=== PATIENT | female | born 1955 | race Caucasian/White ===

== ENCOUNTER 2025-05-13 10:09 | Day surgery (SDC) | payer MEDICARE, MEDICAID, SELFPAY ==
--- OUTSIDE RECORDS SUMMARY | 2025-05-07 14:30 | XMS_ITS | Encounter Summary ---
Author Organization [facility] [place] [address] Care Team Providers Care Rug Renovator Name Role Phone Minnie Baker MD Primary Care Provider [phone] Reason for Visit * Reason Comments Follow-up Encounter Details Date Type Department Care Team (Latest Contact Info) Description 05/07/2025 2:30 PM EST Office Visit [facility] [address] [place] [phone] Selvin Patel MD [address] [place] [address] [address] [place] [phone] Coronary artery calcification (Primary Dx); Primary hypertension; Other hyperlipidemia Social History Tobacco Use Types Packs/Day Years Used Date Smoking Tobacco: Former Cigarettes 0.5 30.1 0 06/27/1984 - 07/23/2014 Smokeless Tobacco: Never Alcohol Use Standard Drinks/Week Comments No 0 (1 standard drink = 0.6 oz pur e alcohol) Housing Instability Answer Date Recorde d Are you worried that in the next 2 months you may not have stable housing? No 05/31/2024 Food Access & Nutrition Answer Date Rec orded Do you have access to a vari ety of food including fruits and vegetables? Yes 05/31/2024 Access to Healthcare Answer Date Record ed Within the last 3 months, ho w many times did you visit the emergency department for your medical care? 0 05/31/2024 Health Literacy Answer Date Recorded How often do you need to hav e someone help you when you read instructions, pamphlets, or other written material from your doctor or pharmacy? Never 05/31/2024 Caregiver: How often do you need to have someone help you when you read instructions, pamphlets, or other written material from your doctor or pharmacy? Not on file 05/31/2024 Financial Risk Answer Date Recorded How hard is it for you to pa y for the very basics like food, housing, medical care, and air conditioning / heating? Somewhat hard 05/31/2024 Transportation Answer Date Recorded Has the lack of transportati on kept you from meetings, work, or from getting things needed for daily living? No Has the lack of transportati on kept you from medical appointments or from getting medications? No 05/31/2024 Social Isolation Answer Date Recorded How often do you feel lonely or isolated from th ose around you? Never 05/31/2024 Food Risk Answer Date Recorded Within the past 12 months we worried whether our food would run out before we got money to buy more. Sometimes true 024 Within the past 12 months th e food we bought just didn't last and we didn't have money to get more. Sometimes true 05/31/2024 Dependent Care Answer Date Recorded Do you need help finding or paying for care for your loved ones. For example, director child abuse therapy or elderly care for an older adult? No 05/31/2024 Education Answer Date Recorded Do you think completing more education or training, like finishing a GED, going to college, or learning a trade, would be helpful for you? N/A 05/31/2024 Employment and Income Answer Date Recor ded During the last four weeks, have you been actively looking for work? No 05/31/2024 Living Situation Answer Date Recorded What is your living situation? Unrecognized valu e 05/31/2024 Interpersonal Safety Answer Date Record ed Physical Abuse Unrecognized value 04/02/2025 Verbal Abuse Unrecognized value 04/02/2025 Comments No Sex and Gender Information Value Date Recorded Sex Assigned at Female 09/20/2024 3:58 PM EDT Legal Sex Female 2:23 AM EST Gender Identity Not on file Sexual Orientation Not on file documented as of this encounter Last Filed Vital Signs Vital Sign Reading Time Taken Comments Blood Pressure 154/70 05/07/2025 2:57 PM EST Pulse 61 05/07/2025 2:57 PM EST Temperature - - Respiratory Rate - - Oxygen Saturation 95% 05/07/2025 2:57 PM EST Inhaled Oxygen Concentration - - Weight 58.4 kg (128 lb 11.2 oz) 05/07/2025 2:57 PM EST Height 157.5 cm (5' 2 ) 05/07/2025 2:57 PM EST Body Mass Index 23.54 05/07/2025 2:57 PM EST documented in this encounter Ordered Prescriptions Prescription Sig Dispense Quantity Refills Last Filled Start Date End Date amLODIPine (NORVASC) 5 mg tabletIndications: Primary hypertension Take 1 tablet (5 mg total) by mouth 1 (one) time each day. 90 each 3 05/07/2025 05/07/2026 documented in this encounter Progress Notes * Selvin Patel MD - 05/07/2025 2:30 PM ESTAssociated Problem(s): Coronary artery calcification Patient with a previous history of coronary calcification. No symptoms at this time we will continue with risk factor modification. Patient strongly encouraged to contact us if she develops exertional symptoms Orders: ECG 12 lead * Selvin Patel MD - 05/07/2025 2:30 PM ESTAssociated Problem(s): Hypertension Patient's blood pressure is significant elevated. I am going to double the strength of her amlodipine Orders: ECG 12 lead amLODIPine (NORVASC) 5 mg tablet; Take 1 tablet (5 mg total) by mouth 1 (one) time each day. * Selvin Patel MD - 05/07/2025 2:30 PM ESTAssociated Problem(s): Hyperlipidemia Strongly encouraged to get a lipid profile done so that we can ensure that the Repatha is being effective and be able to continue it through medical management. Orders: ECG 12 lead * Selvin Patel MD - 05/07/2025 2:30 PM EST Images from the original note were not included. [facility] CONSULT REQUESTED BY: Dr Baker PCP: Minnie Baker MD HPI: Hetal Craft is [id number] history of hypertension, possible whitecoat induced. History of hyperlipidemia, family history coronary disease. With a 50-year-old brother suffering acute coronary syndrome and sudden cardiac . Patient is COPD CAT scan of the chest showed evidence of coronarycalcification. History of tobacco abuse alcoholic cirrhosis with varices. Given her cardiac risk factor she underwent testing with a stress echocardiogram to evaluate for any evidence of ischemia. She completed the stress echo with no chest pain but she did develop some shortness of breath. There were no abnormal ST segment changes suggestive of ischemia. She had a normal resting echocardiogram with preserved EF and no regional wall motion abnormalities with exercise. She had normal augmented response the test was submaximal since she only reached 70% of age-predicted heart rate. Patient was previously on statin therapy but was unable to tolerate it Patient has sleep study done that showed mild sleep apnea that is obstructive. Patient is on Repatha for hyperlipidemia due to statin intolerance. She has had no chest pain or pressure no shortness of breath no PND orthopnea has some heartburn. She has not had her lipids checked which we have asked her to. History of Present Illness ACTIVE MEDICATIONS: Medications Taking[1] PAST MEDICAL HISTORY: Problem List[2] ALLERGIES: Allergies[3] FAMILY HISTORY: Family History[4] SOCIAL HISTORY: Social History Tobacco Use Smoking status: Former Current packs/day: 0.00 Average packs/day: 0.5 packs/day for 30.1 years (15.0 ttl pk-yrs) Types: Cigarettes Start date: 06/27/1984 Quit date: 07/23/2014 Years since quittin.7 Smokeless tobacco: Never Substance Use Topics Alcohol use: No REVIEW OF SYSTEMS: ROS PHYSICAL EXAM: Vitals: 05/07/25 1457 BP: (!) 154/70 BP Location: Right arm Patient Position: Sitting Pulse: 61 SpO2: 95% Weight: 58.4 kg (128 lb 11.2 oz) Height: 1.575 m (62 ) Physical Exam EKG: No results found for this or any previous visit (from the past 4464 hours). ASSESSMENT/PLAN: Assessment & Plan Coronary artery calcification Patient with a previous history of coronary calcification. No symptoms at this time we will continue with risk factor modification. Patient strongly encouraged to contact us if she develops exertional symptoms Orders: ECG 12 lead Primary hypertension Patient's blood pressure is significant elevated. I am going to double the strength of her amlodipine Orders: ECG 12 lead amLODIPine (NORVASC) 5 mg tablet; Take 1 tablet (5 mg total) by mouth 1 (one) time each day. Other hyperlipidemia Strongly encouraged to get a lipid profile done so that we can ensure that the Repatha is being effective and be able to continue it through medical management. Orders: ECG 12 lead Assessment/Plan The above note was prepared with the help of voice recognition software. Please excuse any grammatical or spelling errors that may have occurred The [facility] team will continue to co-manage this patient following the plan of care as established by my initial visit and as per AHA guidelines for ongoing management and surveillance of Hyperlipidemia This will include medication titration, initiation of appropriate medications and further titration,and diagnostic studies to manage this disease process. [1] Outpatient Medications Marked as Taking for the 05/07/25 encounter (Office Visit) with Selvin Patel MD Medication Sig Dispense Refill albuterol HFA (PROAIR HFA ; PROVENTIL HFA ; VENTOLIN HFA) 90 mcg/actuation inhaler Inhale 2 Puffs into the lungs every 6 hours as needed for Wheezing or Shortness of Breath for up to 90 days. This isabel Rescue Medication; not exceed 12 inhalations/24 hrs. alirocumab (Praluent Pen) 75 mg/mL pen injector INJECT 1 ML INTO THE SKIN EVERY 14 DAYS 6 mL 0 fluticasone propionate (FLONASE) 50 mcg/actuation nasal spray Administer 2 sprays into each nostril1 (one) time each day. Shake gently. Before first use, prime pump. After use, clean tip and replacecap. 48 mL 2 gabapentin (NEURONTIN) 300 mg capsule Take 1 capsule (300 mg total) by mouth at bedtime. 90 capsule1 lactulose (Enulose) solution Take 15 mL (10 g total) by mouth 2 (two) times a day. 1500 mL 1 lamoTRIgine (LaMICtal) 100 mg tablet Take 1 tablet (100 mg total) by mouth 2 (two) times a day. traZODone (DESYREL) 50 mg tablet Take 1-2 tablets (50-100 mg total) by mouth at bedtime as needed for sleep. 180 tablet 0 [DISCONTINUED] amLODIPine (NORVASC) 2.5 mg tablet Take 1 tablet (2.5 mg total) by mouth at bedtime.90 tablet 1 [2] Patient Active Problem List Diagnosis Cataract Cervicalgia Cirrhosis, alcoholic ([facility] V24, [facility] V28) CKD (chronic kidney disease) stage 3, GFR 30-59 ml/min ([facility] V24, [facility] V28) COPD (chronic obstructive pulmonary disease) ([facility] V24, [facility] V28) Coronary artery calcification Diverticulosis Dysphagia Esophageal reflux Esophageal varices ([facility] V24, [facility] V28) Hyperlipidemia Hypertension Low back pain Obstructive sleep apnea Osteoporosis Prediabetes Ulcerative colitis without complications ([facility] V24, [facility] V28) History of lung cancer History of dysplastic nevus Primary insomnia Migraine Seizure disorder ([facility] V24, [facility] V28) [3] Allergies Allergen Reactions Omeprazole Diarrhea Diarrhea and oral ulceration. Pantoprazole Other fatigue Penicillins Hives Sucralfate Itching [4] Family History Problem Relation Name Age of Onset Esophageal cancer Mother 2009 Alcohol abuse Father Heart attack Brother age 51 Colon cancer Maternal Grandmother Colon cancer Paternal Grandmother Breast cancer Neg Hx Ovarian cancer Neg Hx documented in this encounter Plan of Treatment Upcoming Encounters Date Type Department Care Team (Late st Contact Info) Description 05/15/2025 3:00 PM EST Appointment Radiology Department - [place] [address] [place] [phone] 05/15/2025 3:30 PM EST Appointment Radiology Department - [address] [phone] 06/06/2025 5:00 PM EST Appointment [facility] CT Scan [address] [place] [phone] 10/09/2025 9:45 AM EDT Office Visit Adult Medicine [address] [phone] Minnie Baker MD [address] [place] [address] 10/16/2025 11:25 AM EDT Office Visit Pulmonology [facility] [address] [facility] [address] [place] [phone] Dariana Cramer, CHRIS [address] [place] [phone] documented as of this encounter Goals Goal Patient Goal Type Associated Problems Recent Progress Patient-Stated? Author Autogenerat ed Goal Care Plan Autogenerated Problem No Yina Griffith documented as of this encounter Visit Diagnoses Diagnosis Coronary artery calcification- Primary Primary hypertension Unspecified essential hypertension Other hyperlipidemia documented in this encounter Discontinued Medications Medication Sig Discontinue Reason Start Date End Da te amLODIPine (NORVASC) 2.5 mg tablet Take 1 tablet (2.5 mg total) by mouth at bedtime. 03/14/2025 05/07/2025 documented as of this encounter Additional Health Concerns Active Problems Noted Date Diagnosed Date Autogenerated Problem 04/01/2025 Assessment Noted Time PHQ-9 Depression Total Score: 0 03/07/20 25 10:53 AM EDT A fall risk assessment has been complete d for the patient 05/31/2024 10:49 AM EST documented as of this encounter Care Teams Rug Renovator Relationship Specialty Start Date End Date Minnie Baker MD [address] [place] [phone] PCP - General Internal Medicine 12/21/19 documented as of this encounter
--- OUTSIDE RECORDS SUMMARY | 2025-05-09 09:05 | XMS_ITS | Encounter Summary ---
Author Organization [facility] [place] [address] Care Team Providers Care Production Wood Craftsman Name Role Phone Minnie Baker MD Primary Care Provider [phone] Encounter Details Date Type Department Care Team (Late st Contact Info) Description 05/09/2025 9:05 AM EST Lab Draw Station - [address] [phone] Hyperlipidemia, unspecified hyperlipidemia type Social History Tobacco Use Types Packs/Day Years [...] Record ed Within the last 3 months, astrid kirby many times did you visit the emergency [...] do you feel lonely or isolated from ose around you? Never 05/31/2024 Food Risk [...] care for your loved ones. For example, children's ministry director or elderly care for an older adult? [...] on file documented as of this encounter Plan of Treatment Upcoming Encounters Date Type Department Care Team ([facility] Contact Info) Description 05/15/2025 3:00 PM EST Appointment Radiology Department [address] [place] [phone] 05/15/2025 3:30 PM EST Appointment Radiology Department - [address] [phone] 06/06/2025 5:00 PM EST Appointment [facility] CT Scan [address] [place] [phone] 10/09/2025 9:45 AM EDT Office Visit Adult [facility] [place] [facility] [place] [address] [place] [address] Minnie Baker MD [address] [place], [place] 10/16/2025 11:25 AM EDT Office Visit Pulmonology [facility] [address] [facility] [address] [place] [phone] Dariana Cramer, CHRIS [address] [place] [phone] documented as of this encounter Goals Goal Patient Goal Type Associated Problems Recent Progress Patient-Stated? Author Autogenerat ed Goal Care Plan Autogenerated Problem No Yina Griffith documented as of this encounter Procedures Procedure Name Priority Date/Time Associated Diagnosis Comments LIPID PANEL WITH REFLEX TO DIRECT LDL Routine 05/09/2025 9:07 AM EST Hyperlipidemia, unspecified hyperlipidemia type documented in this encounter Results * Lipid panel with reflex to direct LDL (05/09/2025 9:07 AM EST) Cholesterol 168 0 - 200 mg/dL LAB CHEMISTRY METHOD 05/09/2025 4:[address] [facility] Triglycerides 78 0 - 150 mg/dL LAB CHEMISTRY METHOD 05/09/2025 4:[address] [facility] HDL 69 >=40 mg/dL LAB CHEMISTRY METHOD 05/09/2025 4:[address] [facility] LDL Calculated 83 0 - 100 mg/dL LAB CHEMISTRY METHOD 05/09/2025 4:[address] [facility] Comment:Estimated LDL Calcul ated using equation: Total cholesterol - HDL cholesterol - (Triglycerides/5) VLDL Cholesterol Layo 15.6 mg/dL LAB CHEMISTRY METHOD 05/09/2025 4:[address] [facility] Non HDL Chol. (LDL+VLDL) 99 <145 mg/dL LAB CHEMISTRY METHOD 05/09/2025 4:04 PM [facility] Chol/HDL Ratio 2.4 0.0 - 4.4 LAB CHEMISTRY METHOD 05/09/2025 4:04 PM [facility] Blood Venous blood specimen / Unknown Venipuncture / Unknown 05/09/2025 9:07 AM EST 05/09/2025 9:08 AM EST Flora Avina JANITORIAL SUPERVISOR LAB BLOOD ORDERABLES Final R esult [facility] [address] [place] [address], documented in this encounter Visit Diagnoses Diagnosis Hyperlipidemia, unspecified hyperlipidemia type documented in this encounter Additional Health Concerns Active Problems Noted Date Diagnosed Date Autogenerated Problem 04/01/2025 Assessment Noted Time PHQ-9 Depression Total Score: 0 03/07/20 25 10:53 AM EDT A fall risk assessment has been complete d for the patient 05/31/2024 10:49 AM EST documented as of this encounter Care Teams Production Wood Craftsman Relationship Specialty Start Date End Date Minnie Baker MD [address] [place] [phone] PCP - General Internal Medicine 12/21/19 documented as of this encounter
--- NOTE | ~2025-05-13 | FL_ITS ---
EXAMINATION: FLUOROSCOPY GUIDANCE FOR NEEDLE PLACEMENT CLINICAL INFORMATION: T7 THOARACIC TFESI, RIGHT COMPARISON: None available. TECHNIQUE: Fluoroscopy guidance was provided to referring physician during T7 epidural injection. FINDINGS: AP and lateral images were obtained during T7 and to injection. There is contrast opacifying the epidural space. FLUOROSCOPY TIME: 16 seconds DOSE AREA PRODUCT: 63.29 uGy-m2 (microgray-meter squared) FL/FL guidance in OR IMPRESSION: Fluoroscopy guidance was provided to referring physician during T7 epidural injection. Electronically signed by: Iban Ross MD 05/13/2025 03:34 PM EST
--- NOTE | 2025-05-13 10:26 | MHC.SHP ---
Pre-Procedural Eval Section A - 24 Hr Update-Section A only Date of Service: 05/13/25 The patient is an INPATIENT: No Section B - Complete if H&P > 30 days Chief Complaint: Radiculopathy, thoracic region Details of Present Illness: Chronic thoracic pain right thoracic radiculitis Relevant Family History (Specify if Yes): No Relevant Social History: None Present Medications: see Short Stay Collaborative assessment Medical History: No relevant PMH History of Previous Operations: No relevant previous surgery Allergies: Allergies Allergy/AdvReac Type Severity Reaction Status Date / Time Unable to Assess Allergy Verified 05/13/25 10:24 Review of Systems Sugical H&P ROS: Negative: Constitution, Cardiovascular, Respiratory, Neurological, Psychiatric, Hem-Onc, Allergic/Immunologic, Gastrointestinal, Genitourinary, Musculoskeletal, Integumentary, Endocrine and Eyes/Ears/Nose/Throat Exam Surgical H&P Exam: Normal: HEENT, Normal: Heart, Normal: Lungs, Normal: Extremities, Normal: Abdomen, Normal: Skin and Normal: Neurological Plan Diagnosis/Plan: Unchanged I have reviewed the history and physical and performed a pertinent physical examination on my patient. No changes have occurred unless specified. Time Spent With Patient Time: Total time managing care of this patient today ____ minutes.
[2025-05-13 10:27] VITALS: BMI 23.6
--- NOTE | 2025-05-13 10:27 | W.PM.OPN ---
Operative Note Operative Note Date of Service: 05/13/25 Narrative: Procedure performed: Right T7 transforaminal epidural steroid injection Preop diagnosis: Thoracic radiculitis Postop diagnosis: The same Anesthesia: Mac Patient was placed in the prone position on the procedure table. Right T7 pedicle was visualized utilizing fluoroscopy. 3.5 in 22 gauge spinal needle was introduced percutaneously and advanced underneath the pedicle toward the spinal canal. Once the level of spinal canal was achieved as demonstrated on lateral fluoroscopic image, needle placement was verified utilizing 3 cc of Omnipaque contrast solution. Total volume of 6 cc containing 3 cc of 1% lidocaine, 20 mg of dexamethasone and normal saline solution were injected after negative aspiration for blood and cerebrospinal fluid. Radiation exposure was documented in the chart
[2025-05-13 10:41] VITALS: BP 138/65; PULSE 60; RESP 18; TEMP 36.7; O2SAT 96
[2025-05-13] MEDS: Lactated Ringers 1,000 ML 50 ML IVCONT (10:50)
--- NOTE | 2025-05-13 11:32 | HO.ANESPROP2 ---
[facility] Active Problems Active Problems: All Active Problems Thoracic radiculopathy (Acute) Past Medical History Medical History H/O: lung cancer Prediabetes HLD (hyperlipidemia) Osteoporosis CKD (chronic kidney disease) stage 3, GFR 30-59 ml/min GERD (gastroesophageal reflux disease) Cirrhosis Esophageal varices Coronary artery calcification AUBREY (obstructive sleep apnea) COPD (chronic obstructive pulmonary disease) Seizure disorder Migraine Surgical History Surgical History History of lobectomy of lung Social History Social History Patient Tobacco Use Status: Former Tobacco user Have you been hit, kicked, punched, or otherwise hurt by someone within the past year? If so, by whom?: No Are you DNR?: No Advance Directives: No Advance Directives Information Provided: Yes : Yes Meds Allergies Allergy/AdvReac Type Severity Reaction Status Date / Time Penicillins Allergy Hives Verified 05/13/25 10:52 Active Medications: Current Medications Lactated Ringer's (Lr) 1,000 mls @ 50 mls/hr IVCONT .Q20H ARELY Last Admin: 05/13/25 10:50 Dose: 50 mls/hr Home Medications ?Medication ?Instructions ?Recorded ?Confirmed ?Last Taken ?Type alirocumab 75 mg/mL subcutaneous 75 mg subcut Q2W 05/13/25 05/13/25 Unknown History pen injector (Praluent Pen) amlodipine 5 mg tablet 5 mg PO DAILY 05/13/25 05/13/25 05/13/25 History fluticasone propionate 50 2 spray intranasal DAILY 05/13/25 05/13/25 Unknown History mcg/actuation nasal spray,suspension gabapentin 300 mg capsule 300 mg PO BEDTIME 05/13/25 05/13/25 Unknown History lamotrigine 100 mg tablet 100 mg PO 05/13/25 05/13/25 History trazodone 50 mg tablet 50 - 100 mg PO BEDTIME PRN insomnia 05/13/25 05/13/25 Unknown History Exam Height,Weight and Vital Signs: Height 5 ft 2 in Weight 129 lb Last Vital Signs Temp 98.1 F 05/13/25 10:41 Pulse 60 05/13/25 10:41 Resp 18 05/13/25 10:41 BP 138/65 05/13/25 10:41 Pulse Ox 96 05/13/25 10:41 O2 Del Method Room Air 05/13/25 10:41 Airway Mallampati Class: III TM Dist: >3cm Neck ROM: Full Denture: Upper Loose/Missing/Broken Teeth: No Heart: Rrr Lungs: Cta Assessment and Plan Final Anesthetic Review ASA Class: II Final Preanesthetic Review: No Changes in Pt Med Stat, Meds/Allgs Chart Reviewed, Consent Obtained/Reviewed and Anes Risks/Benef Reviewed Patient Risk: Low Procedure Risk: Low Anesthetic Plan Disposition: Standard PACU
[2025-05-13 12:05] VITALS: BP 136/64; PULSE 62; RESP 16; TEMP 36.6; O2SAT 96
[2025-05-13 12:20] VITALS: BP 150/72; PULSE 67; RESP 16; TEMP 36.6; O2SAT 96
--- OUTSIDE RECORDS SUMMARY | 2025-05-13 21:03 | XMS_ITS | Encounter Summary ---
[facility] Organization [facility] [address] Care Team Providers Care Wet End Tester Name Role Phone Minnie Baker MD Primary Care Provider [phone] Encounter Details Date Type Department Care Team (Late st Contact Info) Description 04/30/2025 Telephone [facility] [address] [place] [address]asad [address] [place] [phone] Selvin Patel MD [address] [place] [address] Dr Larios [address] [place] [phone] Social History Tobacco Use Types Packs/Day Years [...] care for your loved ones. For example, child care specialist or elderly care for an older adult? [...] on file documented as of this encounter Progress Notes * Kisha Mayesto - 04/30/2025 11:30 AM EST Left a message for patient to schedule an appointment with Dr Patel for any avail spots this week or whenever pt can do. documented in this encounter Plan of Treatment Upcoming Encounters Date Type Department Care Team (Late st Contact Info) Description 05/15/2025 3:00 PM EST Appointment Radiology Department - [address] [phone] 05/15/2025 3:30 PM EST Appointment Radiology Department - [address] [phone] 06/06/2025 5:00 PM EST Appointment [facility] CT Scan [address] [place] [phone] 10/09/2025 9:45 AM EDT Office Visit Adult Medicine [address] [phone] Minnie Baker MD [address] [place] [address] 10/16/2025 11:25 AM EDT Office Visit Pulmonology - [place] [address] [facility] [address] [place] [phone] Dariana Cramer, CHRIS [address] [place] [phone] documented as of this encounter Goals Goal Patient Goal Type Associated Problems Recent Progress Patient-Stated? Author Autogenerat ed Goal Care Plan Autogenerated Problem No Yina Griffith documented as of this encounter Visit Diagnoses Not on filedocumented in this encounter Additional Health Concerns Active Problems Noted Date Diagnosed Date Autogenerated Problem 04/01/2025 Assessment Noted Time PHQ-9 Depression Total Score: 0 03/07/20 25 10:53 AM EDT A fall risk assessment has been complete d for the patient 05/31/2024 10:49 AM EST documented as of this encounter Care Teams Wet End Tester Relationship Specialty Start Date End Date Minnie Baker MD [address] [place] [address] PCP - General Internal Medicine 12/21/19 documented as of this encounter
--- OUTSIDE RECORDS SUMMARY | 2025-05-13 21:03 | XMS_ITS | Encounter Summary ---
Author Organization [place] [address] Care Team Providers Care Radiology Transporter Name Role Phone Minnie Baker MD Primary Care Provider [phone] Encounter Details Date Type Department Care Team ([facility] st Contact Info) Description 04/01/2025 Results Follow-Up Gastroenterology - [place] [address] [facility] [address] [facility] [address] [place] [phone] Cindy Cabezas PA [address] [facility] [address] [place] [address] Social History Tobacco Use Types Packs/Day Years [...] care for your loved ones. For example, early childhood education specialist or elderly care for an older [...] 04/02/2025 Verbal Abuse Unrecognized value 04/02/2025 Comments Unknown Sex and Gender Information Value Date Recorded Sex Assigned at Female 09/20/2024 3:58 PM EDT Legal Sex Female 2:23 AM EST Gender Identity Not on file Sexual Orientation Not on file documented as of this encounter Progress Notes * ANGELA Ferrer - 04/01/2025 5:07 PM EDT I will send msg. documented in this encounter Plan of Treatment Upcoming Encounters Date Type Department Care Team (Late st Contact Info) Description 05/15/2025 3:00 PM EST Appointment Radiology Department [address] [phone] 05/15/2025 3:30 PM EST Appointment Radiology [address] [phone] 06/06/2025 5:00 PM EST Appointment [facility] CT Scan [address] [place] [phone] 10/09/2025 9:45 AM EDT Office Visit Adult Medicine [address] [phone] Minnie Baker MD [address] [place] [address] 10/16/2025 11:25 AM EDT Office Visit Pulmonology [facility] [address] [facility] [address] [place] [address] Dariana Cramer NP [address] [place] [phone] documented as of this encounter Goals Goal [...] documented as of this encounter Care Teams Radiology Transporter Relationship Specialty Start Date End Date Minnie Baker MD [address] [place] [address] PCP - General Internal Medicine 12/21/19 documented as of this encounter
--- OUTSIDE RECORDS SUMMARY | 2025-05-13 21:03 | XMS_ITS | Data Portability ---
Author Organization ANGELA Mathias s, [address] Address [address] [place] [address] Care Team Providers Care Manager Recruitment Name Role Phone [facility] Care Provider Assessment No assessment recorded. Plan of Treatment Reminders Order Date Submit Date Provider Last Modified By Organization Details Last Modified Time Details Appointments None recorded. Lab None recorded. Referral None recorded. Procedures None recorded. Surgeries None recorded. Imaging None recorded. Medication Orders prednisone 20 mg tablet 2022 023 [id number], [address] [place], [address], 3 09:18:07 meclizine 25 mg tablet 2022 023 [id number], [address] [place], [address], 3 09:18:06 ipratropium bromide 42 mcg (0.06 %) nasal spray 2022 023 [id number], [address] [facility] [place], [address], 3 09:18:07 Patient TargetsNo targets recorded. Patient Instructions Encounter Date Encounter Id Patient Instructions Last Modified By Organization Details Last Modified Time 02/24/2023 [id number] The fluid that collects behind the eardrum (called an effusion) can persist for weeks to months after the pain of an ear infection resolves. An effusion causes trouble hearing, which is usually mild to moderate and temporary. The Eustachian tube is a tube that connects the middle ear (the part of the ear behind the eardrum) to the back of the nose and throat. Normally, the Eustachian tube opens and closes. This helps keep the air pressure inside the middle ear the same as the air pressure outside the middle ear. If there is a problem with the Eustachian tube opening, the air pressure inside the middle ear won't be the same as the air pressure outside it. This can cause ear pain, hearing loss, and other symptoms. Ear barotrauma is the medical term for when people have symptoms or damage in the middle ear because of air pressure differences. In some people, the Eustachian tube does not close normally, but stays open all the time. This can also cause symptoms like hearing the sound of your own voice and breathing. Most Eustachian tube problems last only a short time and get better on their own. Common causes of Eustachian tube problems are: -Illnesses or conditions that make the Eustachian tubes swollen or inflamed These include colds, allergies, ear infections, or sinus infections. The sinuses are hollow areas in the bones of the face. -Sudden air pressure changes Sudden air pressure changes can happen when people fly in an airplane, scuba dive, or drive up to the mountains. -Growths that block the Eustachian tube -Being born with an abnormal Eustachian tube TREATMENT DECONGESTANT NOSE SPRAYS LIKE AFRIN (OXYMETAZOLINE) FOR 3 DAYS ONLY Antihistamines Like cetirizine, loratidine, fexofenadine, levocetirizine; These medicines are usually used to treat allergies. They help stop itching, sneezing, and runny nose symptoms. Decongestants Like phenylephrine, pseudoephedrine. These medicines can help with stuffy nose symptoms. Antibiotics are not needed to treat Eustachian tube problems. But they might be needed if a person has an ear infection. [email or web address] Not available 02/24/2023 09:18:24 A/P: Eustacian tube dysfunction with some congestion with normal EAR/EYE/JAW exam in a well hydrated and nontoxic patient. Physical exam was benign. Vitals normal. Patient ambulating, speaking, breathing, drinking/eating normally. Plan: Symptomatic treatment with trial prednisone and early f.u in person in 48 hours for recheck. ED precautions given for any new or worsening symptoms. Patient understands and agrees with plan. Not available 03/01/2023 17:31:05 Reason for Referral None Reported. Problems Name Problem SNOMED Code Status Onset Date Resolution Date Notes Provider Name and Address Organization Details Recorded Time Malignant neoplasm of lung 098961857 Completed 201401/26/2016 LUCILLEALLI KUMAR null, PA - [facility] 3 08:54:04 Hypertensiv e disorder 94272684 Active 2022 LUCILLE JOSÉ null, PA - [facility] 3 08:53:36 Hyperlipide mayra 37432569 Active 2022 LUCILLE ARABELLALANDONZ null, PA - [facility] 3 08:53:40 Asthma 341987552 Active 2022 LUCILLE ARABELLATOYA null, PA - [facility] 3 08:54:12 Gastroesoph ageal reflux disease 234685776 Active 2022 LUCILLE MACHTOYA null, PA - [facility] 3 08:54:17 Problem Notes None recorded. Procedures Surgical History Date Name Laterality Status Provider Name and Address Organization Details Recorded Time cholecystectomy completed LUCILLE BELLTOYA PA - [facility] 02/24/2023 08:55:02 hernia repair completed LUCILLE GARCIAZ PA - [facility] 02/24/2023 08:55:07 Imaging Results None recorded. Procedure Notes None recorded. Medical Equipment None Reported. Allergies Allergen ID Allergen Name Allergen Category Reaction Reaction Severity Criticality Documentation Date Start Date Code Code System Note Provider Name and Address Organization Details Recorded Time 785019 Product containin g penicilli n (product) medicatio n hives Not available Not available 02/24/2023 06848 8001 SNOMED LUCILLE BELLTOYA null, PA - [facility] 3 08:52:21 Medications Name Sig Start Date Stop Date Status Note LastModified by Organization Details LastModified Time silver sulfadiazin e 1 % topical cream active Not Available Not Available Not Available ibuprofen 800 mg tablet TAKE 1 TABLET BY MOUTH EVERY 8 HOURS NEEDED FOR PAIN FOR UP TO 30 DAYS. active Not Available Not Available No t Available ondansetron HCl 4 mg tablet TAKE 1 TABLET BY MOUTH 4 TIMES DAILY NEEDED FOR NAUSEA active Not Available Not Available No t Available prednisone 20 mg tablet Take 2 tablets every day by oral route for 5 days. 2022 active Not Available Not Available Not Avai lable amlodipine 2.5 mg tablet TAKE 1 TABLET BY MOUTH EVERY DAY active Not Available Not Available No t Available pantoprazol e 20 mg tablet,ruddy yed release TAKE 1 TABLET BY MOUTH EVERY MORNING (BEFORE BREAKFAST ) FOR 30 DAYS. active Not Available Not Available No t Available famotidine 20 mg tablet TAKE 1 TABLET BY MOUTH 2 TIMES DAILY NEEDED FOR HEARTBURN . active Not Available Not Available No t Available trazodone 100 mg tablet TAKE 1.5 TABLETS BY MOUTH AT BEDTIME active Not Available Not Available No t Available meclizine 25 mg tablet Take 1 tablet every 6-8 hours by oral route as needed. 2022 active Not Available Not Available Not Avai lable gabapentin 300 mg capsule TAKE 1 CAPSULE BY MOUTH EVERYDAY AT BEDTIME active Not Available Not Available No t Available bisacodyl 5 mg tablet,ruddy yed release PLEASE SEE ATTACHED FOR DETAILED DIRECTION S active Not Available Not Available No t Available albuterol sulfate HFA 90 mcg/actuati on aerosol inhaler PLEASE SEE ATTACHED FOR DETAILED DIRECTION S active Not Available Not Available No t Available ipratropium bromide 42 mcg (0.06 %) nasal spray [place] 2 sprays 3 times a day by intranasa l route for 10 days. 2022 active Not Available Not Available Not Avai lable fluticasone propionate 50 mcg/actuati on nasal spray,suspe nsion SPRAY 2 SPRAYS BY NASAL ROUTE DAILY active Not Available Not Available No t Available lamotrigine 100 mg tablet TAKE 1 TABLET BY MOUTH EVERY MORNING AND EVERY EVENING active Not Available Not Available No t Available Enulose 10 gram/15 mL oral solution TAKE 15 ML BY MOUTH 2 TIMES DAILY NEEDED FOR CONSTIPAT ION active Not Available Not Available No t Available GaviLyte-G 236 gram-22.74 gram-6.74 gram-5.86 gram oral solution PLEASE SEE ATTACHED FOR DETAILED DIRECTION S 02/24 completed Not Available Not Available Not Available Praluent Pen 75 mg/mL subcutaneou s pen injector INJECT 1 ML INTO THE SKIN EVERY 14 DAYS active Not Available Not Available No t Available Flowflex COVID-19 Antigen Home Test kit TEST DIRECTED TODAY 02/24 completed Not Available Not Available Not Available Vitals Date Recorded Body height Body mass index (BMI) Body weight Respiratory rate Pain severity - 0-10 verbal numeric rating [Score] - Reported Body temperature Heart rate Oxygen saturation Oxygen saturation in Arterial blood by Pulse oximetry Systolic And Diastolic Provider Name and Address Organization Details Last Updated DateTime 3 157.48 cm 24.1 kg/m2 26298.1 9 g 16 /min 6 98.1 [degF] 57 /min 98 % 98 % 130/80 mm[Hg] LUCILLE KUMAR PA - [facility] 3 08:57:13 Social History Question Answer Notes LastModified by Organizat ion Details LastModified Time Tobacco Smoking Status Former Smoker LUCILLE white PA - [facility] 02/24/2023 08:54:49 When Did You Quit Smoking? 6-10yearssi [email or web address] rette Quit In 2015 Information not available 02/24/2023 Have You Recently Traveled Abroad? No Information not available 02/24/2023 Sex: Unknown Functional Status Question Answer Note LastModified by Organizat ion Details LastModified Time Do you use any illicit or recreational drugs? No Information not available 02/24/2023 Do you or have you ever used any other forms of tobacco or nicotine? No Information not available 02/24/2023 What is your level of alcohol consumption? None Information not available 02/24/2023 Mental Status None recorded. Family History Relationship Description Onset Age of this Age Resolved Age Notes LastModified by Organization Details LastModified Time Unspecified Relation Malignant neoplastic disease [email or web address] Not available 2022 08:54:27 Medical History No medical history recorded. Gynecological History Statement/Question Response LMP N/A Obstetrics History GPAL:G 0 P 0 0 0 0 Immunizations Vaccine Type Date Status Note Provider Nam e and Address Organization Details Recorded Time Influenza, high-dose, quadrivalent, PF 2 completed LUCILLE MACHNACZ null, PA - [facility] 02/24/2023 08:50:19 Influenza, adjuvanted, quadrivalent, PF 0 completed LUCILLE MACHNACZ null, PA - [facility] 02/24/2023 08:50:19 Influenza, adjuvanted, quadrivalent, PF 1 completed LUCILLE MACHNACZ null, PA - [facility] 02/24/2023 08:50:19 COVID-19, mRNA, LNP-S, PF, 30 mcg/0.3 mL dose 1 completed LUCILLE MACHNACZ null, PA - [facility] 02/24/2023 08:50:19 COVID-19, mRNA, LNP-S, PF, 30 mcg/0.3 mL dose 1 completed LUCILLE MACHNACZ null, PA - [facility] 02/24/2023 08:50:19 COVID-19, mRNA, LNP-S, PF, 30 mcg/0.3 mL dose 1 completed LUCILLE MACHNACZ null, PA - [facility] 02/24/2023 08:50:19 COVID-19, mRNA, LNP-S, PF, 30 mcg/0.3 mL dose, yajaira-sucrose 2 completed LUCILLE MACHNACZ null, PA - [facility] 02/24/2023 08:50:19 COVID-19, mRNA, LNP-S, bivalent, PF, 30 mcg/0.3 mL dose 2 completed LUCILLE MACHNACZ null, PA - [facility] 02/24/2023 08:50:19 pneumococcal polysaccharide PPV23 1 completed LUCILLE MACHNACZ null, PA - [facility] 02/24/2023 08:50:19 pneumococcal polysaccharide PPV23 8 completed LUCILLE MACHNACZ null, PA - [facility] 02/24/2023 08:50:19 Td(adult) unspecified formulation 3 completed LUCILLE MACHNACZ null, PA - [facility] 02/24/2023 08:50:19 Tdap 4 completed LUCILLE MACHNACZ null, PA - [facility] 02/24/2023 08:50:19 Hep B, adult 4 completed LUCILLE MACHNACZ null, PA - [facility] 02/24/2023 08:50:19 Hep B, adult 3 completed LUCILLE MACHNACZ null, PA - [facility] 02/24/2023 08:50:19 Hep B, adult 3 completed LUCILLE MACHNACZ null, PA - [facility] 02/24/2023 08:50:19 Past Encounters Encounter ID Performer Location Encounter Start Date Encounter Closed Date Diagnosis/Indication Diagnosis SNOMED-CT Code Diagnosis ICD10 Code Diagnosis IMO Codes Diagnosis Note [id number] [place] [address] 04/22/2018 09:44:53 04/22/2018 10:00:31 [id number] [address] [place] [address] 02/05/2020 08:17:27 02/05/2020 09:47:21 [id number] [address] [place] [address] 09/01/2020 09:21:42 09/01/2020 09:55:08 [id number] [address] [place] [address] 12/09/2019 08:58:21 12/09/2019 09:41:11 [id number] [address] [place] [address] 08/10/2021 13:39:29 08/10/2021 16:45:24 [id number] [address] [place] [address] 09/24/2016 15:42:53 09/24/2016 16:14:53 [id number] [place] [address] 06/14/2020 09:19:55 06/14/2020 09:23:32 [id number] ANGELA STEIN [facility] [address] [place] [address] 02/24/2023 08:24:31 02/24/2023 09:20:01 Dysfunction of eustachian tube 63219752 H69.92 Benign par oxysmal positional vertigo 078953684 H81.12 Seasonal a llergic rhinitis 779802652 J30.2 Health Concerns Section Related Observation LastModified by Organization Detai ls LastModified Time None Recorded Concern Status LastModified by Organization Details LastModified Time None Recorded Advance Directives Directive None Recorded Payers Insurance Date Sequence Insurance Name Policy Number Policy Albarran Covered Member ID Albarran Member ID Guarantor Name 02/24/2023 1 [place] [employer] Hetal Mitesh Jimmyimesteph [id number] Hetal Marquezimesteph 04/05/2023 2 [place] [facility] Hetal Sagastume Ouimet [id number] Hetal Ouimet 02/24/2023 NORIDIAN - SPECIALITY CLAIMS (MEDICARE [facility]) Hetal Sagastume Ouimet [id number] Hetal Marquezimesteph Notes Date Note Type Note Provider Name and Address Organization Details Recorded Time 3 text/html Ear Pain Brief HPIReported by PatientHPIFor severity, patient reportsinterferes with daily activitiesbut reportsno fever,no interference with sleep, andmoderate pain. For associated symptoms, patient reportscoughbut reportsno jaw popping or clicking,no decreased appetite,no discharge from ear,no nasal discharge,no hearing loss,no sense of fullness,no sore throat,no dental pain,no tinnitus,no decreased hearing, andno muffled hearing. For location, patient reportsleft. For onset/timing, patient reportsstarted 5days ago,intermittent pain, andgradual onset. For duration, patient reportsoccurs daily. For quality, patient reportsno itching,no discharge from the ears, andno burning. For context, patient reportsno recent uri,no recent trauma,no recent ear infection,no recent swimming,no immunocompromise,no dental problems,no recent airplane travel,no scuba diving, andnon-smoker. For alleviating factors, patient reportsposition changeandstretching jaw.67 y.o female pt with h.o seasonal allergies presents with >5 days of intermittent left ear pain that lasts a few minutes-hours and goes away. Pt also admits to nasal congestion that is also worse on the left side. Pt has had this before when allergies gets worse. Pt admits to dizziness when she lies down or turns her head. She denies chest pain, SOB, N/T sensation in upper ext, weakness, fever, weakness, or any other sx's. Pt is speaking, ambulating and swallowing without any complications and in no acute distress. ANGELA STEIN [address] [place], [address], PA - [facility] 03/01/2023 17:31:24 OBGyn Episode No OBEpisode recorded.
--- OUTSIDE RECORDS SUMMARY | 2025-05-13 21:04 | XMS_ITS | Clinical Summary ---
Author Organization [address] Address [address] [place] [address] Phone Care Team Providers Care Service Officer Name Role Phone Minnie Baker MD Primary Care Provider [phone] Allergies Active Allergy Reactions Criticality Noted Date Comments Omeprazole Diarrhea High 12/17/2015 Diarrhea and oral ulceration. Pantoprazole Other High 09/22/2020 fatigue Penicillins Hives High 06/03/2011 Sucralfate Itching High 03/24/2020 Medications albuterol HFA (PROAIR HFA ; PROVENTIL HFA ; VENTOLIN HFA) 90 mcg/actuation inhaler Inhale 2 Puffs into the lungs every 6 hours as needed for Wheezing or Shortness of Breath for up to 90 days. This is a Rescue Medication; not exceed 12 inhalations/24 hrs. 08/04/19 24 Active lamoTRIgine (LaMICtal) 100 mg tablet Take 1 tablet (100 mg total) by mouth 2 (two) times a day. 11/16/19 24 Active lactulose (Enulose) solution Take 15 mL (10 g total) by mouth 2 (two) times a day. 1500 mL 1 09/28/19 25 Active fluticasone propionate (FLONASE) 50 mcg/actuation nasal sprayIndication s:Allergic rhinitis, unspecified Administer 2 sprays into each nostril 1 (one) time each day. Shake gently. Before first use, prime pump. After use, clean tip and replace cap. 48 mL 2 10/12/19 25 Active gabapentin (NEURONTIN) 300 mg capsule Take 1 capsule (300 mg total) by mouth at bedtime. 90 capsule 1 03/14/20 25 Active traZODone (DESYREL) 50 mg tablet Take 1-2 tablets (50-100 mg total) by mouth at bedtime as needed for sleep. 180 tablet 04/08/20 25 Active lansoprazole (PREVACID) [address] capsule Take 1 capsule (30 mg total) by mouth 1 (one) time each day. Do not crush or chew. 90 each 3 04/02/20 25 026 Active Additional Information Patient not taking.Reported on 05/07/2025 alirocumab (Praluent Pen) 75 mg/mL pen injector INJECT 1 ML INTO THE SKIN EVERY 14 DAYS 6 mL 04/22/20 25 Active amLODIPine (NORVASC) 5 mg tabletIndicatio ns:Primary hypertension Take 1 tablet (5 mg total) by mouth 1 (one) time each day. 90 each 3 05/07/20 25 026 Active alirocumab (Praluent Pen) 75 mg/mL pen injector 12/05/19 24 025 Discontinued amLODIPine (NORVASC) 2.5 mg tablet Take 1 tablet (2.5 mg total) by mouth at bedtime. 90 tablet 1 03/14/20 25 025 Discontinued clotrimazole (MYCELEX) 10 mg kacy Take 1 tablet (10 mg total) by mouth 5 (five) times a day for 10 days. 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 Left lower lobe segmental resection 05/2016 for cancer. Dysphagia 04/16/2024 CKD (chronic kidney disease) stage 3, GFR 30-59 ml/min ([facility] V24, [facility] V28) 02/15/2022 Low back pain 02/15/2022 Overview (04/16/2024): Chronic sciatica Obstructive sleep apnea 10/30/2021 Overview (05/31/2024): UNTREATED as of 05/31/24 [facility] Home sleep test 10/22/2021; weight 145; BMI 27. AHI 5. 12 obstructive apneas, 3 central apneas, 1 mixed apnea and 2 hypopneas. Average oxygen saturation 96% with oxygen shani 75%. Obstructive sleep apnea-mild with mostly obstructive apneas and without significant nocturnal hypoxemia based on 2021 home sleep test. Last Assessment & Plan: Patient reports that she is having trouble with her CPAP. Patient encouraged to follow-up with sleep medicine to discuss. Diverticulosis 11/19/2020 Ulcerative colitis without c omplications ([facility] V24, [facility] V28) 11/19/2020 Hypertension 08/24/2019 Overview (09/02/2024): Assessment & Plan (05/07/2025 5:39 PM EST): Patient's blood pressure is significant elevated. I am going to double the strength of her amlodipine Orders: ECG 12 lead amLODIPine (NORVASC) 5 mg tablet; Take 1 tablet (5 mg total) by mouth 1 (one) time each day. Coronary artery calcification 08/03/2017 Overview (09/02/2024): Noted on low-dose CAT scan of chest Assessment & Plan (05/07/2025 5:39 PM EST): Patient with a previous history of coronary calcification. No symptoms at this time we will continue with risk factor modification. Patient strongly encouraged to contact us if she develops exertional symptoms Orders: ECG 12 lead Hyperlipidemia 08/03/2017 Overview (09/02/2024): Assessment & Plan (05/07/2025 5:39 PM EST): Strongly encouraged to get a lipid profile done so that we can ensure that the Repatha is being effective and be able to continue it through medical management. Orders: ECG 12 lead Prediabetes 04/15/2017 Cirrhosis, alcoholic ([facility] V24, [facility] V28) 10/22/2010 Overview (04/16/2024): 10/25/2006---MELD=7. 07/04/2007---MELD=8. 02/15/2008---MELD=7. Cervicalgia 09/22/2010 Cataract 11/03/2007 COPD (chronic obstructive pu lmonary disease) ([facility] V24, [facility] V28) 08/01/2007 Esophageal reflux 05/18/2005 Esophageal varices ([facility] V24, [facility] V28) Overview (04/16/2024): Endo 02-21-2006--no sig varices. No varices 10/28/2006, 10/24/2009, 08/08/2012, 11/12/2015. Osteoporosis 05/18/2005 Overview (10/09/2024): Mar 2010: T-score lumbar (-2.4); hip (-2.6) May 2021: T-score lumbar (-3.0); hip (-3.0) 10/19 T score spine -3.4 hip -3.5 Resolved Problems Problem Noted Date Diagnosed Date Resolved Date Globus sensation 04/16/2024 05/31/2024 Chronic left shoulder pain 01/12/2019 1 08/01/2023 Pulmonary nodules 11/30/2018 05/31/2024 Biceps tendinitis of left shoulder 09/05/2018 05/31/2024 Subacromial bursitis of left shoulder joint 05/26/2018 05/31/2024 Chronic left shoulder pain 01/26/2017 1 08/01/2023 Shoulder, capsulitis, adhesive 01/26/2017 05/31/2024 Rotator cuff tendinitis 09/22/201010/2023 Encounters Date Type Department Care Team Description 05/09/2025 9:05 AM EST Lab Draw Station - [address] [phone] Hyperlipidemia, unspecified hyperlipidemia type 05/07/2025 2:30 PM EST Office Visit [facility] [address] [place] [phone] Selvin Patel MD Coronary artery calcification (Primary Dx); Primary hypertension; Other hyperlipidemia 04/30/[address] [facility] [address] [place] [phone] Selvin Patel MD 04/16/2025 9:45 AM EDT Office Visit Pulmonology - [place] [address] [facility] [address] [place] [phone] Dariana Cramer NP Chronic obstructive pulmonary disease, unspecified COPD type (CMS/HCC V24, CMS/HCC V28) (Primary Dx); History of lung cancer 04/13/2025 8:30 AM EDT - 04/13/2025 11:59 PM EDT Hospital Encounter Radiology Department - [address] [address] Encounter for screening mammogram for breast cancer Discharge Disposition: Home or Self Care 04/09/2025 3:00 PM EDT Office Visit Adult Medicine [address] [phone] Tamara Awad PA Primary hypertension (Primary Dx) 04/02/2025 8:57 AM EDT Anesthesia Event [facility] Endoscopy [address] [place] [phone] Vicky William MD Steele, Matthew G, CRNA 04/02/2025 8:35 AM EDT - 04/02/2025 11:59 PM EDT Hospital Encounter [facility] Endoscopy [address] [place] [phone] Vicky William MD Muslu, MD Kevin Garcia Matthew G, CRNA Heartburn Discharge Disposition: Home or Self Care 04/01/2025 Results Follow-Up Gastroenterology [facility] [address] [place] [phone] Cindy Cabezas PA 04/01/2025 Telephone Gastroenterology - [place] [address] [place] [phone] Shruthi Bolanos MA 03/26/2025 9:12 AM EDT - 03/26/2025 11:59 PM EDT Hospital Encounter [facility] Xray [address] [place] [phone] Alcoholic cirrhosis of liver without ascites ([facility] V24, [facility] V28); Hiatal hernia with GERD without esophagitis Discharge Disposition: Home or Self Care 03/14/2025 11:15 AM EDT Office Visit Adult Medicine [address] [phone] Minnie Baker MD Alcoholic cirrhosis of liver without ascites ([facility]/HCC V24, [facility]/HCC V28) (Primary Dx); Stage 3 chronic kidney disease, unspecified whether stage 3a or 3b CKD ([facility]/HCC V24, [facility]/HCC V28); Chronic obstructive pulmonary disease, unspecified COPD type ([facility]/HCC V24, CMS/HCC V28); Ulcerative colitis without complications, unspecified location (CMS/HCC V24, CMS/HCC V28); Secondary esophageal varices without bleeding (CMS/HCC V24, CMS/HCC V28); Primary insomnia; Seizure disorder ([facility]/HCC V24, [facility] V28); Prediabetes; Primary hypertension 03/02/2025 8:25 AM EDT - 03/02/2025 11:59 PM EDT Hospital Encounter [facility] MRI [address] [place] [address] Alcoholic cirrhosis of liver without ascites (CMS/HCC V24, CMS/HCC V28); Hiatal hernia with GERD without esophagitis Discharge Disposition: Home or Self Care 02/28/2025 9:30 AM EDT Lab Draw Station - [address] [facility] [place] [phone] Alcoholic cirrhosis of liver without ascites ([facility]/HCC V24, CMS/HCC V28); Hiatal hernia with GERD without esophagitis 02/28/2025 Telephone Gastroenterology [facility] [address] [facility] [address] [place] [address] Cindy Cabezas PA 02/27/2025 8:30 AM EDT Office Visit Gastroenterology [facility] [address] [facility] [address] [facility] [address] [place] [address] Cindy Cabezas PA Alcoholic cirrhosis of liver without ascites ([facility]/HCC V24, CMS/HCC V28) (Primary Dx); Hiatal hernia with GERD without esophagitis from Last 3 Months Immunizations Immunization Administration Dates Next Due COVID-19 (Plan B Acqusitions/ComirnatLocal [employer]) 12yo and older 03/28 Hepatitis B (Swlahxm-B-Nxwxh , Recombivax HB-Adult) 19yo and older 07/09/2003,02/08/2003,01/09/2003 Influenza Quadravalent, 0.5m l (Fluad) 65yo and older 03/18/2023,06/11/2021,04/04/2020 Influenza Quadravalent, 0.5m l (Fluzone High-dose) 65yo and older 03/14/2022 Influenza trivalent, 0.5mL ( Fluad) 65yo and older 03/19/2023,04/04/2020 Influenza trivalent, 0.5mL ( Fluzone High-dose) 65yo and older 04/06/2024 Influenza trivalent, with pr eservative (Fluzone; Afluria) 6mo and older 06/11/2021 Influenza, Unspecified 03/27/2021 Pfizer (ages 12 & older) Bivalent, COVID-19 07/2022 Pfizer (ages 12 & older) TEX S-CoV-2 COVID-19, mRNA, LNP-S, yajaira-sucrose, preservative free 11/05/2021 Pfizer SARS-CoV-2 COVID-19, mRNA, LNP-S, preservative free 11/05/2021,03/30/2021 Pneumococcal conjugate 20 va lent (Prevnar 20, PCV 20) 2mo and older 12/14/2022 Pneumococcal polysaccharide 23 valent (Pneumovax 23) 2yo and older 07/11/2020,08/01/2007 RSV, bivalent, protein subun it RSVpreF, 0.5mL, Preservative Free (Arexvy) 50yo and older 03/28/2023 Td Tetanus diptheria (Tdvax) 7yo and older 11/29,12/17/2002 Td, Unspecified 12/17/2002 Tdap Tetanus diptheria acell ular pertussis (Boostrix; Adacel) 7yo and older 08/22/2013 Surgical History Surgery Date Site/Laterality Comments HYSTERECTOMY COLONOSCOPY 1997 Negative COLONOSCOPY 10/28/2006 Negative examination. CATARACT EXTRACTION bilateral OTHER SURGICAL HISTORY resection submental mass SHOULDER SURGERY bilat COLONOSCOPY 2014 Minimal diverticulosis; no polyps. OTHER SURGICAL HISTORY 11/2014 R upper lobectomy; lung ca HERNIA REPAIR 2015 inguinal UPPER GASTROINTESTINAL ENDOSCOPY 11/12/2015 Normal upper GI mucosa on PPI treatment. OTHER SURGICAL HISTORY 06/03/2016 Left lobectomy for lung ca UPPER GASTROINTESTINAL ENDOSCOPY 08/08/2012 normal UPPER GASTROINTESTINAL ENDOSCOPY 10/24/2009 No varices, consider repeat exam 2012. UPPER GASTROINTESTINAL ENDOSCOPY 10/28/2006 No esophageal varices. UPPER GASTROINTESTINAL ENDOSCOPY 07/04/2018 small HH. UPPER GASTROINTESTINAL ENDOSCOPY 08/05/2020 grade C esophagitis; no varices. ESOPHAGOGASTRODUODENOSCOPY 11/05/2020 Mild esophagitis, small hiatal hernia, otherwise negative. COLONOSCOPY 11/06/2020 Diverticulosis; minimal aphthous ulceration; biopsies: Suggestive of idiopathic inflammatory bowel disease. COLONOSCOPY 08/05/2021 tubular adenoma OTHER SURGICAL HISTORY 08/05/2022 esoph stricture dilated SCREENING MAMMOGRAM 12/16/2022 Bilateral BX BREAST W DEVICE 1ST LESIO N ULTRASOUND GUIDE Right many yrs ago-benign Medical History Medical History Date Comments Osteoporosis, unspecified Esophageal reflux COPD (chronic obstructive pu lmonary disease) (CMS/HCC V24, CMS/HCC V28) 08/01/2007 Esophageal varices ([facility] V24, [facility] V28) 05/18/2005 Endo 02-21-2006--no sig varic es. No varices 10/28/2006, 10/24/2009, 08/08/2012. Cirrhosis ([facility] V24, [facility] V28) Esophagitis Chronic ischemic heart disease Cervical spondylosis without myelopathy Hyperlipidemia Low back pain 02/15/2022 Chronic sciatica CKD (chronic kidney disease) stage 3, GFR 30-59 ml/min ([facility] V24, [facility] V28) 02/15/2022 Tubular adenoma of colon Diverticulosis DX:Diverticulosi s History of dysplastic nevus 09/02/2024 Lung cancer ([place] [id number], [place] 229928) S/P LOBECTOMY Family History Medical History Relation Name Comments Heart attack Brother age 51 Alcohol abuse Father Colon cancer Maternal Grandmother Esophageal cancer Mother 2 010 Colon cancer Paternal Grandmother Breast cancer Neg Hx Ovarian cancer Neg Hx Relation Name Status Comments Brother Father Maternal Grandmother Mother Paternal Grandmother Social History Tobacco Use Types Packs/Day Years Used Date Smoking Tobacco: Former Cigarettes 0.5 30.1 0 06/27/1984 - 07/23/2014 Smokeless Tobacco: Never Tobacco Cessation:Counseling Given: Not Answered Alcohol Use Standard Drinks/Week Comments No 0 [...] for your loved ones. For example, child day care provider or elderly care for an older adult? [...] on file Sexual Orientation Not on file Obstetrics History Para Term AB IAB SAB Ectopic Multiple Livin g Live Births 2 2 2 2 Date Outcome GA Total Labor Labor/2nd/3rd Weight Sex Type Anes PTL Saumya A1 A5 Name Clin Term Term Last Filed Vital Signs Vital Sign Reading Time Taken Comments Blood Pressure 154/70 05/07/2025 2:57 PM EST Pulse 61 05/07/2025 2:57 PM EST Temperature 36.6 C (97.8 F) 04/16/2025 9:30 AM EDT Respiratory Rate 14 04/16/2025 9:30 AM EDT Oxygen Saturation 95% 05/07/2025 2:57 PM EST Inhaled Oxygen Concentration - - Weight 58.4 kg (128 lb 11.2 oz) 05/07/2025 2:57 PM EST Height 157.5 cm (5' 2 ) 05/07/2025 2:57 PM EST Body Mass Index 23.54 05/07/2025 2:57 PM EST Plan of Treatment Upcoming Encounters Date Type Department Care Team (Late st Contact Info) Description 05/15/2025 3:00 PM EST Appointment Radiology Department - [address] [phone] 05/15/2025 3:30 PM EST Appointment Radiology Department - [address] [phone] 06/06/2025 5:00 PM EST Appointment [facility] CT Scan [address] [place] [phone] 10/09/2025 9:45 AM EDT Office Visit Adult Medicine [address] [phone] Minnie Baker MD [address] [place] [address] 10/16/2025 11:25 AM EDT Office Visit Pulmonology [facility] [address] [facility] [address] [place] [phone] Dariana Cramer, CHRIS [address] [place] [phone] Health Maintenance Due Date Last Done Comments Hepatitis A Vaccines (1 of 2 - Risk 2-dose series) 1974 Zoster Vaccines (1 of 2) 1974 COVID-19 Vaccine ( season) 2025 04/06/2024, 03/28/2023, 03/28/2023, Additional history exists Influenza Vaccine (#1) 2025 , 03/19/2023, 03/18/2023, Additional history exists Medicare Annual Wellness Visit 05/31/2025 05/31/2024 Social Influencers of Health Screening 05/31/2025 05/31/2024 Hypertension/CHF/CAD Annual BMP Blood Test 02/28/2026 02/28/2025, 11/22/2024, 08/07/2024, Additional history exists Falls Risk Assessment 04/02/2026 04/02/2025 , 05/31/2024, 06/15/2023 Breast Cancer Screening 04/13/2027 04/13/20, 03/15/2024, 03/15/2024, Additional history exists Colorectal Cancer Screening: Colonoscopy 08/05/2027 08/05/2022 Cholesterol Screening (Lipid Panel) 05/09/2030 05/09/2025, 11/16/2023, 11/16/2023 DTaP,Tdap,and Td Vaccines (5 - Td or Tdap) 2033 11/30/2023, 08/22/2013, 12/17/2002, Additional history exists Osteoporosis Screening (Bone Density Screening) 10/09/2034 10/09/2024, 05/29/2021 Hepatitis B Vaccines Completed 07/09/2003, 02/08/2003, 01/09/2003 Hepatitis C Screening Completed 10/01/2015 Pneumococcal Vaccine: 50+ Years Completed 12/14/2022, 07/11/2020, 08/01/2007 RSV Immunization Adult Patients Completed 03/28/2023 Depression Screening Completed 03/07/2025, 06/15/20 HIB Vaccines Aged Out No longer eligi ble based on patient's age to complete this topic HPV Vaccines Aged Out No longer eligi ble based on patient's age to complete this topic IPV Vaccines Aged Out No longer eligi ble based on patient's age to complete this topic MMR Vaccines Aged Out No longer eligi ble based on patient's age to complete this topic Meningococcal ACWY Vaccine Aged Out N o longer eligible based on patient's age to complete this topic Meningococcal B Vaccine Aged Out No l onger eligible based on patient's age to complete this topic RSV Immunization Patients Under 20 months Aged Out No longer eligible based on patient's age to complete this topic Varicella Vaccines Aged Out No longer eligible based on patient's age to complete this topic Goals Goal Patient Goal Type Associated Problems Recent Progress Patient-Stated? Author Autogenerat ed Goal Care Plan Autogenerated Problem No Yina Griffith Procedures Procedure Name Priority Date/Time Associated Diagnosis Comments LIPID PANEL WITH REFLEX TO DIRECT LDL Routine 05/09/2025 9:07 AM EST Hyperlipidemia, unspecified hyperlipidemia type MG MAMMO DIGITAL SCREENING W ROCKY BILAT Routine 04/13/2025 8:51 AM EDT Encounter for screening mammogram for breast cancer EGD Routine 04/02/2025 9:11 AM EDT Heartburn XR UGI W AIR CONTRAST Routine 03/26/2025 9:40 AM EDT Alcoholic cirrhosis of liver without ascites (CMS/HCC V24, CMS/HCC V28) Hiatal hernia with GERD without esophagitis HEMOGLOBIN A1C Routine 03/14/2025 12:01 PM EDT Prediabetes MR ABDOMEN WO AND W CONTRAST Routine 03/02/2025 9:27 AM EDT Alcoholic cirrhosis of liver without ascites (CMS/HCC V24, CMS/HCC V28) Hiatal hernia with GERD without esophagitis CBC WITH AUTO DIFFERENTIAL Routine 02/28/2025 9:34 AM EDT Alcoholic cirrhosis of liver without ascites (CMS/HCC V24, CMS/HCC V28) Hiatal hernia with GERD without esophagitis CBC AND DIFFERENTIAL Routine 02/28/2025 9:34 AM EDT Alcoholic cirrhosis of liver without ascites (CMS/HCC V24, CMS/HCC V28) Hiatal hernia with GERD without esophagitis COMPREHENSIVE METABOLIC PANEL Routine 02/28/2025 9:34 AM EDT Alcoholic cirrhosis of liver without ascites (CMS/HCC V24, CMS/HCC V28) Hiatal hernia with GERD without esophagitis ALPHA FETOPROTEIN TUMOR MARKER Routine 02/28/2025 9:34 AM EDT Alcoholic cirrhosis of liver without ascites (CMS/HCC V24, CMS/HCC V28) Hiatal hernia with GERD without esophagitis BD BONE DENSITY DXA AXIAL SKELETON Routine 10/09/2024 9:38 AM EDT Age-related osteoporosis without current pathological fracture DEPRESSION SCREENING Routine 06/15/2023 FALLS RISK ASSESSMENT Routine 06/15/2023 HM COLONOSCOPY Routine 08/05/2022 HEPATITIS C SCREENING Routine 10/01/2015 from Last 3 Months or Most Recently Relevant to Health Maintenance Results * Lipid panel with reflex to direct LDL (05/09/2025 9:07 AM EST) Cholesterol 168 0 - 200 mg/dL LAB CHEMISTRY METHOD 05/09/2025 4:04 PM [facility] Triglycerides 78 0 - 150 mg/dL LAB CHEMISTRY METHOD 05/09/2025 4:04 PM [facility] HDL 69 >=40 mg/dL LAB CHEMISTRY METHOD 05/09/2025 4:04 PM [facility] LDL Calculated 83 0 - 100 mg/dL LAB CHEMISTRY METHOD 05/09/2025 4:04 PM [facility] Comment:Estimated LDL Calcul ated using equation: Total cholesterol - HDL cholesterol - (Triglycerides/5) VLDL Cholesterol Layo 15.6 mg/dL LAB CHEMISTRY METHOD 05/09/2025 4:04 PM [facility] Non HDL Chol. (LDL+VLDL) 99 <145 mg/dL LAB CHEMISTRY METHOD 05/09/2025 4:04 PM [facility] Chol/HDL Ratio 2.4 0.0 - 4.4 LAB CHEMISTRY METHOD 05/09/2025 4:04 PM [facility] Blood Venous blood specimen / Unknown Venipuncture / Unknown 05/09/2025 9:07 AM EST 05/09/2025 9:08 AM EST Flora Davidruben [facility] LAB BLOOD ORDERABLES Final R esult [facility] [address] [place] [address], [place] [phone] * (ABNORMAL) MG Mammo Digital Screening w Rocky bilat (04/13/2025 8:51 AM EDT) Anatomical Region Laterality Modality Breast Bilateral Mammography 04/16/2025 9:33 AM EDT Impressions 04/16/2025 9:37 AM EDT Small focal asymmetry in the left breast as detailed. Additional imaging is recommended including spot compression views in CC and MLO projection, full field striped lateral view. Ultrasound would also be needed. We will contact the patient for the arrangements. BI-RADS CATEGORY: 0 - INCOMPLETE - NEED ADDITIONAL IMAGING EVALUATION RECOMMENDATION: Additional left breast imaging recommended. Mammo Location: [facility], [address] [place] [address], [id number], . -------- FINAL REPORT -------- Dictated By: Altagracia Moseley Dictated Date: 04/16/2025 09:33 ET Assigned Physician: Altagracia Moseley Reviewed and Electronically Signed By: Altagracia Moseley Signed Date: 04/16/2025 09:37 ET Workstation ID: [id number] Transcribed By: Self Edit Transcribed Date: 04/16/2025 09:33 ET Narrative 04/16/2025 9:37 AM EDT Bilateral screening mammogram. CLINICAL: 69 years old, Female, routine annual exam. COMPARISON: Prior mammograms, latest from 03/15/2024. TECHNIQUE: Bilateral MLO and CC views were obtained digitally with 2-D C views and 3-D mammogram (digital breast tomosynthesis). Computer-aided detection was utilized in evaluation of this exam (CAD). FINDINGS: There is a small focal asymmetry in the left upper slightly outer breast. There is no evidence of other suspicious mass or architectural distortion. No new worrisome calcifications are evident. BREAST DENSITY: B - There are scattered areas of fibroglandular density. Procedure Note Altagracia Moseley MD - 04/16/2025 Bilateral screening mammogram. CLINICAL: 69 years old, Female, routine annual exam. COMPARISON: Prior mammograms, latest from 03/15/2024. TECHNIQUE: Bilateral MLO and CC views were obtained digitally with 2-D Cviews and 3-D mammogram (digital breast tomosynthesis). Computer-aideddetection was utilized in evaluation of this exam (CAD). FINDINGS: There is a small focal asymmetry in the left upper slightly outerbreast. There is no evidence of other suspicious mass or architectural distortion.No new worrisome calcifications are evident. BREAST DENSITY: B - There are scattered areas of fibroglandular density. IMPRESSION: Small focal asymmetry in the left breast as detailed. Additional imagingis recommended including spot compression views in CC and MLO projection,full field striped lateral view. Ultrasound would also be needed. Wewill contact the patient for the arrangements. BI-RADS CATEGORY: 0 - INCOMPLETE - NEED ADDITIONAL IMAGING EVALUATION RECOMMENDATION: Additional left breast imaging recommended. Mammo Location: [facility], [address] [place] [address], [id number], . -------- FINAL REPORT -------- Dictated By: Altagracia Moseley Dictated Date: 04/16/2025 09:33 ET Assigned Physician: Altagracia Moseley Reviewed and Electronically Signed By: Altagracia Moseley Signed Date: 04/16/2025 09:37 ET Workstation ID: [id number] Transcribed By: Self Edit Transcribed Date: 04/16/2025 09:33 ET Minnie Baker MD IMG BI PROCEDURES Final Result * EGD Anesthesia - MAC; [facility] ENDOSCOPY (04/02/2025 9:11 AM EDT) Anatomical Region Laterality Modality Endoscopy 04/02/2025 8:47 AM EDT Impressions 04/02/2025 9:14 AM EDT - Normal examined duodenum. - Normal mucosa was found in the entire stomach. - Small hiatal hernia. - Benign-appearing esophageal stenosis. Dilated. - Esophageal plaques were found, consistent with candidiasis. - No specimens collected. Recommendation: - Discharge patient to home. - Use a proton pump inhibitor PO daily indefinitely. - D/C pepcid. - Mycelex (clotrimazole) 10 mg lozenge 5x/day for 10 days. Narrative 04/02/2025 9:14 AM EDT [facility] GI Patient Name: Hetal Luna Procedure Date: 04/02/2025 8:47 AM Date of : 1955 Age: 69 Gender: Female Note Status: Finalized Attending MD: Torsten Alvarado MD, Procedure Date No Time: 04/02/2025 Procedure: Upper GI endoscopy Indications: Esophageal reflux symptoms that persist despite appropriate therapy Providers: Torsten Alvarado MD Referring MD: Torsten Alvarado MD Medicines: Monitored Anesthesia Care Complications: No immediate complications. Estimated blood loss: Minimal. Estimated Blood Loss: Estimated blood loss was minimal. Procedure: Pre-Anesthesia Assessment: - Prior to the procedure, a History and Physical was performed, and patient medications and allergies were reviewed. The patient is competent. The risks and benefits of the procedure and the sedation options and risks were discussed with the patient. All questions were answered and informed consent was obtained. Patient identification and proposed procedure were verified by the physician, the nurse, the medical art therapist and the denture laboratory technician in the pre-procedure area in the endoscopy suite. Mental Status Examination: alert and oriented. Airway Examination: normal oropharyngeal airway and neck mobility. Respiratory Examination: clear to auscultation. CV Examination: normal. Prophylactic Antibiotics: The patient does not require prophylactic antibiotics. Prior Anticoagulants: The patient has taken no anticoagulant or antiplatelet agents. ASA Grade Assessment: III - A patient with severe systemic disease. After reviewing the risks and benefits, the patient was deemed in satisfactory condition to undergo the procedure. The anesthesia plan was to use monitored anesthesia care (MAC). Immediately prior to administration of medications, the patient was re-assessed for adequacy to receive sedatives. The heart rate, respiratory rate, oxygen saturations, blood pressure, adequacy of pulmonary ventilation, and response to care were monitored throughout the procedure. The physical status of the patient was re-assessed after the procedure. After obtaining informed consent, the endoscope was passed under direct vision. Throughout the procedure, the patient's blood pressure, pulse, and oxygen saturations were monitored continuously. The Endoscope was introduced through the mouth, and advanced to the second part of duodenum. The upper GI endoscopy was accomplished without difficulty. The patient tolerated the procedure well. Findings: The examined duodenum was normal. Normal mucosa was found in the entire examined stomach. A small hiatal hernia was present. One benign-appearing, intrinsic moderate (circumferential scarring or stenosis; an endoscope may pass) stenosis was found at the gastroesophageal junction. This stenosis measured 1.4 cm (inner diameter) x less than one cm (in length). The stenosis was traversed. A guidewire was placed and the scope was withdrawn. Dilation was performed with a Savary dilator with mild resistance at 14 mm, 15 mm, 16 mm and 17 mm. Estimated blood loss was minimal. Diffuse, white plaques were found in the entire esophagus. Procedure Code(s): --- Professional --- 04215, Esophagogastroduodenoscopy, flexible, transoral; with insertion of guide wire followed by passage of dilator(s) through esophagus over guide wire Diagnosis Code(s): --- Professional --- K22.9, Disease of esophagus, unspecified K22.2, Esophageal obstruction CPT copyright 2020 [employer]. All rights reserved. The codes documented in this report are preliminary and upon character artist review may be revised to meet current compliance requirements. Torsten Alvarado MD 04/02/2025 9:14:52 AM This report has been signed electronically.Torsten Alvarado MD Number of Addenda: 0 Note Initiated On: 04/02/2025 8:47 AM Scope In: Scope Out: Endoscopy Department at [facility] - [address] [place] [id number] Procedure Note Torsten Alvarado MD - 04/02/2025 [facility] GI Patient Name: Hteal Luna Procedure Date: 04/02/2025 8:47 AM Date of : 1955 Age: 69 Gender: Female Note Status: Finalized Attending MD: Torsten Alvarado MD, Procedure Date No Time: 04/02/2025 Procedure: Upper GI endoscopy Indications: Esophageal reflux symptoms that persist despite appropriate therapy Providers: Torsten Alvarado MD Referring MD: Torsten Alvarado MD Medicines: Monitored Anesthesia Care Complications: No immediate complications. Estimated blood loss: Minimal. Estimated Blood Loss: Estimated blood loss was minimal. Procedure: Pre-Anesthesia Assessment: - Prior to the procedure, a History and Physicalwas performed, and patient medications and allergieswere reviewed. The patient is competent. The risks and benefits of the procedure and the sedation optionsand risks were discussed with the patient. Allquestions were answered and informed consent was obtained. Patient identification and proposed procedure were verified by the physician, the nurse, theanesthetist and the denture laboratory technician in the pre-procedure area in the endoscopy suite. Mental Status Examination: alertand oriented. Airway Examination: normal oropharyngeal airway and neck mobility. Respiratory Examination: clear to auscultation. CV Examination: normal. Prophylactic Antibiotics: The patient does notrequire prophylactic antibiotics. Prior Anticoagulants: The patient has taken no anticoagulant or antiplatelet agents. ASA Grade Assessment: III - A patient with severe systemic disease. After reviewing the risksand benefits, the patient was deemed in satisfactory condition to undergo the procedure. The anesthesia plan was to use monitored anesthesia care (MAC). Immediately prior to administration of medications, the patient was re-assessed for adequacy to receive sedatives. The heart rate, respiratory rate, oxygen saturations, blood pressure, adequacy of pulmonary ventilation, and response to care were monitored throughout the procedure. The physical status ofthe patient was re-assessed after the procedure. After obtaining informed consent, the endoscope was passed under direct vision. Throughout theprocedure, the patient's blood pressure, pulse, and oxygen saturations were monitored continuously. TheEndoscope was introduced through the mouth, and advanced tothe second part of duodenum. The upper GI endoscopy was accomplished without difficulty. The patienttolerated the procedure well. Findings: The examined duodenum was normal. Normal mucosa was found in the entire examinedstomach. A small hiatal hernia was present. One benign-appearing, intrinsic moderate (circumferential scarring or stenosis; an endoscope may pass) stenosis was found at thegastroesophageal junction. This stenosis measured 1.4 cm (inner diameter) x less than one cm (in length). Thestenosis was traversed. A guidewire was placed and the scope was withdrawn. Dilation was performed with a Savary dilator with mild resistance at 14 mm, 15 mm, 16 mm and 17 mm. Estimated blood loss was minimal. Diffuse, white plaques were found in the entire esophagus. Procedure Code(s): --- Professional --- 84685, Esophagogastroduodenoscopy, flexible, transoral; with insertion of guide wire followed by passage of dilator(s) through esophagus over guidewire Diagnosis Code(s): --- Professional --- K22.9, Disease of esophagus, unspecified K22.2, Esophageal obstruction CPT copyright 2020 [employer]. All rights reserved. The codes documented in this report are preliminary and upon character artist reviewmay be revised to meet current compliance requirements. Torsten Alvarado MD 04/02/2025 9:14:52 AM This report has been signed electronically.Torsten Alvarado MD Number of Addenda: 0 Note Initiated On: 04/02/2025 8:47 AM Scope In: Scope Out: Endoscopy Department at [facility] - [address] [place] [id number] IMPRESSION: - Normal examined duodenum. - Normal mucosa was found in the entire stomach. - Small hiatal hernia. - Benign-appearing esophageal stenosis. Dilated. - Esophageal plaques were found, consistent with candidiasis. - No specimens collected. Recommendation: - Discharge patient to home. - Use a proton pump inhibitor PO dailyindefinitely. - D/C pepcid. - Mycelex (clotrimazole) 10 mg lozenge 5x/day for10 days. us Torsten Alvarado MD GI~PROCEDURE ORDERABLES Fin al Result * XR UGI w Air Contrast (03/26/2025 9:40 AM EDT) Anatomical Region Laterality Modality Body Radiographic Yanely ging 03/26/2025 11:5 2 AM EDT Impressions 03/26/2025 12:05 PM EDT Tiny, sliding, axial hiatal hernia with small amounts of spontaneous gastroesophageal reflux. There is evidence of duodenitis. No other abnormality is demonstrated. -------- FINAL REPORT -------- Dictated By: Marissa Rondon Dictated Date: 03/26/2025 11:52 ET Assigned Physician: Negro Rao Reviewed and Electronically Signed By: Negro Rao Signed Date: 03/26/2025 12:05 ET Workstation ID: [id number] Transcribed By: Self Edit Transcribed Date: 03/26/2025 11:58 ET Resident/PA/ROLLER: Marissa Rondon Narrative 03/26/2025 12:05 PM EDT FINDINGS: Double contrast UGI performed. COMPARISON: No prior upper GI imaging; barium swallow July 20, 2018. HISTORY: Patient is a 69-year-old female with history of GERD, hernia. PREDICTIVE MAINTENANCE SPECIALIST radiographs: Chef Under AP radiograph of the abdomen obtained. Bowel gas pattern is nonobstructive. Visualized lung bases are clear. There is a surgical suture chain noted along the left lower lobe of the lung. There are cholecystectomy clips present in the right upper quadrant of the abdomen. There is a slight dextroscoliosis of the lumbar spine. There are moderate bony degenerative changes noted of the thoracolumbar spine. There is a moderate stool burden. FINDINGS: Effervescent crystals were administered orally. Thick and thin barium was then administered orally under fluoroscopic control. Esophagus: Normal distensibility, motility and mucosal pattern. There is no evidence of obstruction. There is a tiny, sliding, axial hiatal hernia. Stomach: Normal distensibility and motility. There is mild thickening of the folds of the duodenal bulb and second portion of duodenum consistent with duodenitis. Prompt passage of contrast from the stomach into the duodenal bulb and sweep. No gastric mass or ulceration. Visualization of proximal small bowel is within normal limits. Gastroesophageal reflux: Small amounts of spontaneous gastroesophageal reflux visualized. DAP: 8.05 Gycm^2 Procedure Note Negro Rao MD - 03/26/2025 FINDINGS: Double contrast UGI performed. COMPARISON: No prior upper GI imaging; barium swallow July 20, 2018. HISTORY: Patient is a 69-year-old female with history of GERD, hernia. PREDICTIVE MAINTENANCE SPECIALIST radiographs: Chef Under AP radiograph of the abdomen obtained. Bowel gaspattern is nonobstructive. Visualized lung bases are clear. There is asurgical suture chain noted along the left lower lobe of the lung. Thereare cholecystectomy clips present in the right upper quadrant of theabdomen. There is a slight dextroscoliosis of the lumbar spine. There aremoderate bony degenerative changes noted of the thoracolumbar spine. Thereis a moderate stool burden. FINDINGS: Effervescent crystals were administered orally. Thick and thinbarium was then administered orally under fluoroscopic control. Esophagus: Normal distensibility, motility and mucosal pattern. There isno evidence of obstruction. There is a tiny, sliding, axial hiatal hernia. Stomach: Normal distensibility and motility. There is mild thickening ofthe folds of the duodenal bulb and second portion of duodenum consistentwith duodenitis. Prompt passage of contrast from the stomach into theduodenal bulb and sweep. No gastric mass or ulceration. Visualization ofproximal small bowel is within normal limits. Gastroesophageal reflux: Small amounts of spontaneous gastroesophagealreflux visualized. DAP: 8.05 Gycm^2 IMPRESSION: Tiny, sliding, axial hiatal hernia with small amounts of spontaneousgastroesophageal reflux. There is evidence of duodenitis. No otherabnormality is demonstrated. -------- FINAL REPORT -------- Dictated By: Marissa Rondon Dictated Date: 03/26/2025 11:52 ET Assigned Physician: Negro Rao Reviewed and Electronically Signed By: Negro Rao Signed Date: 03/26/2025 12:05 ET Workstation ID: [id number] Transcribed By: Self Edit Transcribed Date: 03/26/2025 11:58 ET Resident/PA/ROLLER: Marissa Rondon us Cindy MILLER IMG FLUOROSCOPY PROCEDURES Fi nal Result * Hemoglobin A1c (03/14/2025 12:01 PM EDT) Hemoglobin A1C 5.9 <6.5 % LAB CHEMISTRY METHOD 03/14/2025 9:58 PM EDT [facility] Mean Bld Glu Estim. 123 mg/dL LAB CHEMISTRY METHOD 03/14/2025 9:58 PM EDT [facility] Blood Venous blood specimen / Unknown Venipuncture / Unknown 03/14/2025 12:01 PM EDT 03/14/2025 12:01 PM EDT us Minnie Baker MD LAB BLOOD ORDERABLES Final Resul t [facility] [address] [place] [address], [place] [phone] * MR Abdomen wo and w Contrast (03/02/2025 9:27 AM EDT) Anatomical Region Laterality Modality Body Magnetic Resonan ce 03/06/2025 8:10 AM EDT Impressions 03/06/2025 8:43 AM EDT Nodular liver contour consistent with cirrhosis. Heterogeneous enhancement of the liver on arterial phase images, with multiple ill-defined areas of hyperenhancement. All measure less than 2 cm in diameter. LIRADS 2. Consider follow-up MRI in 6 months as per guidelines. 2 small T2 hyperintense pancreatic lesions. 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 One is smaller than on the comparison study in 2017 and one is new. These can be monitored on follow-up studies. -------- FINAL REPORT -------- Dictated By: Gopal Jain Dictated Date: 03/06/2025 08:10 ET Assigned Physician: Gopal Jain Reviewed and Electronically Signed By: Gopal Jain Signed Date: 03/06/2025 08:43 ET Workstation ID: [id number] Transcribed By: Self Edit Transcribed Date: 03/06/2025 08:11 ET Narrative 03/06/2025 8:43 AM EDT PROCEDURE: MRI of the abdomen with intravenous contrast. HISTORY: Liver disease, chronic, HCC screening. TECHNIQUE: Multiplanar multisequence MRI of the abdomen with and without intravenous contrast. IV contrast dose: 11 mL Dotarem from a 15 mL vial with 4 mL discarded. COMPARISON: 07/13/2016. FINDINGS: LOWER THORAX: Normal. LIVER: Nodular contour consistent with cirrhosis. 16 mm hemangioma in the medial right lobe. There are numerous ill-defined foci of enhancement scattered throughout the liver on arterial phase images. All measure well under 2 cm in diameter (the largest lesion measures 13 x 7 mm). The liver has a homogeneous enhancement pattern on portal venous and more delayed phase series. The portal and hepatic veins are patent. BILIARY: Cholecystectomy. Normal caliber biliary tree. No ductal dilatation or filling defect. PANCREAS: There is a 4 mm T2 hyperintense lesion arising from the pancreatic body (series 3, image 20). This is smaller than on the previous study, where this measured 6 mm. There is a second 4 mm lesion slightly exophytic from the pancreatic body slightly more distally (series 3, image 16) which is not seen on the previous study. No ductal dilatation. SPLEEN: 5 mm round focus of hypoenhancement in the inferior spleen, nonspecific but likely benign. Normal size, measuring 12 cm craniocaudal. ADRENAL GLANDS: Normal. KIDNEYS: Normal. Visible portions of the collecting systems are normal. RETROPERITONEUM: No mass or lymphadenopathy. VASCULATURE: No aneurysm. Mild atherosclerotic luminal irregularity of the aorta. BOWEL/MESENTERY: Visible portions are normal. ABDOMINAL WALL: Visible portions are normal. BONES: Mild degenerative changes of the spine. Small left paraspinous intramuscular lipoma at L3. No visible bony lesion. Procedure Note Gopal Jain MD - 03/06/2025 PROCEDURE: MRI of the abdomen with intravenous contrast. HISTORY: Liver disease, chronic, HCC screening. TECHNIQUE: Multiplanar multisequence MRI of the abdomen with and withoutintravenous contrast. IV contrast dose: 11 mL Dotarem from a 15 mL vial with 4 mL discarded. COMPARISON: 07/13/2016. FINDINGS: LOWER THORAX: Normal. LIVER: Nodular contour consistent with cirrhosis. 16 mm hemangioma in themedial right lobe. There are numerous ill-defined foci of enhancementscattered throughout the liver on arterial phase images. All measure wellunder 2 cm in diameter (the largest lesion measures 13 x 7 mm). The liverhas a homogeneous enhancement pattern on portal venous and more delayedphase series. The portal and hepatic veins are patent. BILIARY: Cholecystectomy. Normal caliber biliary tree. No ductaldilatation or filling defect. PANCREAS: There is a 4 mm T2 hyperintense lesion arising from thepancreatic body (series 3, image 20). This is smaller than on theprevious study, where this measured 6 mm. There is a second 4 mm lesionslightly exophytic from the pancreatic body slightly more distally (series3, image 16) which is not seen on the previous study. No ductaldilatation. SPLEEN: 5 mm round focus of hypoenhancement in the inferior spleen,nonspecific but likely benign. Normal size, measuring 12 cmcraniocaudal. ADRENAL GLANDS: Normal. KIDNEYS: Normal. Visible portions of the collecting systems are normal. RETROPERITONEUM: No mass or lymphadenopathy. VASCULATURE: No aneurysm. Mild atherosclerotic luminal irregularity ofthe aorta. BOWEL/MESENTERY: Visible portions are normal. ABDOMINAL WALL: Visible portions are normal. BONES: Mild degenerative changes of the spine. Small left paraspinousintramuscular lipoma at L3. No visible bony lesion. IMPRESSION: Nodular liver contour consistent with cirrhosis. Heterogeneous enhancement of the liver on arterial phase images, withmultiple ill-defined areas of hyperenhancement. All measure less than 2cm in diameter. LIRADS 2. Consider follow-up MRI in 6 months as perguidelines. 2 small T2 hyperintense pancreatic lesions. 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 Thesecan be monitored on follow-up studies. -------- FINAL REPORT -------- Dictated By: Gopal Jain Dictated Date: 03/06/2025 08:10 ET Assigned Physician: Gopal Jain Reviewed and Electronically Signed By: Gopla Jain Signed Date: 03/06/2025 08:43 ET Workstation ID: [id number] Transcribed By: Self Edit Transcribed Date: 03/06/2025 08:11 ET us Cindy MILLER IMG MRI PROCEDURES Final Resu lt * CBC auto differential (02/28/2025 9:34 AM EDT) WBC 6.9 4.8 - 10.8 [facility] HEMETOLOGY METHOD 02/28/2025 11:09 AM EDT [facility] RBC 4.40 3.80 - 4.80 M/mcL LAB HEMETOLOGY METHOD 02/28/2025 11:09 AM [facility] Hemoglobin 13.6 11.5 - 16.0 g/dL LAB HEMETOLOGY METHOD 02/28/2025 11:09 AM [facility] Hematocrit 40.5 35.0 - 47.0 % LAB HEMETOLOGY METHOD 02/28/2025 11:09 AM [facility] MCV 91.6 79.0 - 98.0 FL LAB HEMETOLOGY METHOD 02/28/2025 11:09 AM [facility] MCH 30.8 27.0 - 32.0 pcg LAB HEMETOLOGY METHOD 02/28/2025 11:09 AM [facility] MCHC 33.6 32.0 - 37.0 g/dL LAB HEMETOLOGY METHOD 02/28/2025 11:09 AM [facility] RDW 12.5 11.0 - 15.0 % LAB HEMETOLOGY METHOD 02/28/2025 11:09 AM [facility] Platelets 189 130 - 400 K/mcL LAB HEMETOLOGY METHOD 02/28/2025 11:09 AM [facility] MPV 9.2 7.0 - 11.0 FL LAB HEMETOLOGY METHOD 02/28/2025 11:09 AM [facility] NRBC 0.0 <1.0 % LAB HEMETOLOGY METHOD 02/28/2025 11:09 AM [facility] NRBC Absolute 0.00 <0.10 K/mcL LAB HEMETOLOGY METHOD 02/28/2025 11:09 AM [facility] Neutrophils Relative 62.5 % LAB HEMETOLOGY METHOD 02/28/2025 11:09 AM [facility] Lymphocytes Relative 29.1 % LAB HEMETOLOGY METHOD 02/28/2025 11:09 AM [facility] Monocytes Relative 5.7 % LAB HEMETOLOGY METHOD 02/28/2025 11:09 AM [facility] Eosinophils Relative 1.9 % LAB HEMETOLOGY METHOD 02/28/2025 11:09 AM [facility] Basophils Relative 0.7 % LAB HEMETOLOGY METHOD 02/28/2025 11:09 AM [facility] Immature Granulocytes Relative 0.1 % LAB HEMETOLOGY METHOD 02/28/2025 11:09 AM [facility] Neutrophils Absolute 4.29 1.50 - 7.00 K/mcL LAB HEMETOLOGY METHOD 02/28/2025 11:09 AM [facility] Lymphocytes Absolute 2.00 1.00 - 5.00 K/mcL LAB HEMETOLOGY METHOD 02/28/2025 11:09 AM [facility] Monocytes Absolute 0.39 0.20 - 1.00 K/mcL LAB HEMETOLOGY METHOD 02/28/2025 11:09 AM [facility] Eosinophils Absolute 0.13 0.00 - 0.50 K/mcL LAB HEMETOLOGY METHOD 02/28/2025 11:09 AM [facility] Basophils Absolute 0.05 0.00 - 0.20 K/mcL LAB HEMETOLOGY METHOD 02/28/2025 11:09 AM [facility] Immature Granulocytes Absolute 0.01 0.00 - 0.03 K/mcL LAB HEMETOLOGY METHOD 02/28/2025 11:09 AM [facility] Blood Venous blood specimen / Unknown Venipuncture / Unknown 02/28/2025 9:34 AM EDT 02/28/2025 10:39 AM EDT us Cindy MILLER LAB BLOOD ORDERABLES Final Re sult [facility] [address] [place] [address], * Alpha fetoprotein tumor marker (02/28/2025 9:34 AM EDT) [facility] AFP 4.2 0.0 - 8.0 ng/mL LAB CHEMISTRY METHOD 02/28/2025 1:04 PM EDT [facility] Blood Venous blood specimen / Unknown Venipuncture / Unknown 02/28/2025 9:34 AM EDT 02/28/2025 10:35 AM EDT Narrative [facility] - 02/28/2025 1:04 PM EDT The Siemens Advia Medipacsaur Chemiluminescent Immunoassay is used. Results obtained with different assay methods or kits cannot be used interchangeably. Results cannot be interpreted as absolute evidence of the presence or absence of malignant disease. Cindy MILLER LAB BLOOD ORDERABLES Final Re sult Performing Organization Address City/[facility]/ZIP Co de Phone Number [facility] [address] [place] [address], * (ABNORMAL) Comprehensive metabolic panel (02/28/2025 9:34 AM EDT) [facility] Sodium 140 133 - 145 mmol/L LAB CHEMISTRY METHOD 02/28/2025 12:24 PM EDT [facility] Potassium 3.9 3.5 - 5.5 mmol/L LAB CHEMISTRY METHOD 02/28/2025 12:24 PM EDT [facility] Chloride 111(H) 96 - 110 mmol/L LAB CHEMISTRY METHOD 02/28/2025 12:24 PM EDT [facility] CO2 25 21 - 32 mmol/L LAB CHEMISTRY METHOD 02/28/2025 12:24 PM EDT [facility] Anion Gap 4 3 - 11 LAB CHEMISTRY METHOD 02/28/2025 12:24 PM EDT [facility] Glucose 96 70 - 100 mg/dL LAB CHEMISTRY METHOD 02/28/2025 12:24 PM [facility] BUN 14 5 - 25 mg/dL LAB CHEMISTRY METHOD 02/28/2025 12:24 PM [facility] Creatinine 0.81 0.50 - 1.10 mg/dL LAB CHEMISTRY METHOD 02/28/2025 12:24 PM [facility] eGFR 78 >=60 mL/min/1. 73m2 LAB CHEMISTRY METHOD 02/28/2025 12:24 PM [facility] Comment:Calculation based on the Chronic Kidney Disease Epidemiology Collaboration (CKD-EPI) equation refit without adjustment for race. BUN/Creatinine Ratio 17.3 LAB CHEMISTRY METHOD 02/28/2025 12:24 PM [facility] Calcium 9.0 8.5 - 10.5 mg/dL LAB CHEMISTRY METHOD 02/28/2025 12:24 PM [facility] AST (SGOT) 16 10 - 42 unit/L LAB CHEMISTRY METHOD 02/28/2025 12:24 PM [facility] ALT (SGPT) 17 10 - 60 unit/L LAB CHEMISTRY METHOD 02/28/2025 12:24 PM [facility] Alkaline Phosphatase 81 42 - 121 unit/L LAB CHEMISTRY METHOD 02/28/2025 12:24 PM [facility] Total Protein 6.4 6.0 - 8.0 g/dL LAB CHEMISTRY METHOD 02/28/2025 12:24 PM [facility] Albumin 3.9 3.2 - 5.0 g/dL LAB CHEMISTRY METHOD 02/28/2025 12:24 PM [facility] Total Bilirubin 0.4 0.0 - 1.4 mg/dL LAB CHEMISTRY METHOD 02/28/2025 12:24 PM [facility] Blood Venous blood specimen / Unknown Venipuncture / Unknown 02/28/2025 9:34 AM EDT 02/28/2025 10:35 AM EDT Cindy MILLER LAB BLOOD ORDERABLES Final Re sult [facility] [address] [place] [address], * BD Bone Density DXA Axial Skeleton (10/09/2024 9:38 AM EDT) Anatomical Region Laterality Modality Wrist, Hip, L-spine Bone Densito metry 10/09/2024 10:3 8 AM EDT Impressions 10/09/2024 10:40 AM EDT Impression: This patient's considered to have osteoporosis by WHO criteria. The [facility] Department of Internal Medicine recommends using National Osteoporosis Foundation (NOF) guidelines in treatment decisions related to osteoporosis. NOF guidelines suggest considering treatment for postmenopausal women and men aged 50 or older presenting with the following: History of hip or vertebral fracture. T-score = -2.5 (DXA) at the femoral neck, total hip, or spine, after appropriate evaluation to exclude secondary causes. Low bone mass (T-score between -1.0 and -2.5 at the femoral neck or spine) AND a 10-year probability of a hip fracture = 3% OR a 10-year probability of a major osteoporosis-related fracture = 20% based on the [place]-adapted WHO algorithm Please note that all treatment decisions require clinical judgment and consideration of individual patient factors, including patient preferences, co-morbidities, previous drug use, risk factors not captured in the FRAX model (e.g., frailty, falls, vitamin D deficiency, increased bone turnover, interval significant decline in bone density) and possible under- or over-estimation of fracture risk by FRAX. Optional alternative screening schedule based on mark Miranda., [facility] July 15, 2011 for patients with osteopenia (based on hip BMD T-score) is as follows: * advanced osteopenia (T scores -2.00 to -2.49), BMD testing every year * moderate osteopenia (T scores -1.50 to -1.99), BMD testing every 5 years mild osteopenia or normal BMD (T scores -1.50 and higher), BMD testing every 15 years -------- FINAL REPORT -------- Dictated By: Ellie Iqbal Dictated Date: 10/09/2024 10:38 ET Assigned Physician: Ellie Iqbal Reviewed and Electronically Signed By: Ellie Iqbal Signed Date: 10/09/2024 10:40 ET Workstation ID: [id number] Transcribed By: Self Edit Transcribed Date: 10/09/2024 10:38 ET Narrative 10/09/2024 10:40 AM EDT BONE DENSITY (DEXA) Lumbar Spine T-score is -3.4. (SD relative to 20-29 y/o adult) Z-score is -1.3. (SD relative to age matched peers) This is considered osteoporosis by WHO criteria. Left Hip T-score is -3.5. Z-score is -1.7. This is considered to processes by WHO criteria. Lateral view of the spine demonstrates vertebral heights to be maintained. Procedure Note Ellie Iqbal MD - 10/09/2024 BONE DENSITY (DEXA) Lumbar Spine T-score is -3.4. (SD relative to 20-29 y/o adult) Z-score is -1.3. (SD relative to age matched peers) This is considered osteoporosis by WHO criteria. Left Hip T-score is -3.5. Z-score is -1.7. This is considered to processes by WHO criteria. Lateral view of the spine demonstrates vertebral heights to bemaintained. IMPRESSION: Impression: This patient's considered to have osteoporosis by WHO criteria. The [facility] Department of Internal Medicine recommendsusing National Osteoporosis Foundation (NOF) guidelines in treatmentdecisions related to osteoporosis. NOF guidelines suggest consideringtreatment for postmenopausal women and men aged 50 or older presentingwith the following: History of hip or vertebral fracture. T-score = -2.5 (DXA) at the femoral neck, total hip, or spine, afterappropriate evaluation to exclude secondary causes. Low bone mass (T-score between -1.0 and -2.5 at the femoral neck or spine)AND a 10-year probability of a hip fracture = 3% OR a 10-year probabilityof a major osteoporosis-related fracture = 20% based on the [place]-adapted WHOalgorithm Please note that all treatment decisions require clinical judgment andconsideration of individual patient factors, including patientpreferences, co-morbidities, previous drug use, risk factors not capturedin the FRAX model (e.g., frailty, falls, vitamin D deficiency, increasedbone turnover, interval significant decline in bone density) and possibleunder- or over-estimation of fracture risk by FRAX. Optional alternative screening schedule based on mark Miranda., [facility] for patients with osteopenia (based on hip BMD T-score)is as follows: * advanced osteopenia (T scores -2.00 to -2.49), BMD testing every year * moderate osteopenia (T scores -1.50 to -1.99), BMD testing every 5years mild osteopenia or normal BMD (T scores -1.50 and higher), BMD testingevery 15 years -------- FINAL REPORT -------- Dictated By: Ellie Iqbal Dictated Date: 10/09/2024 10:38 ET Assigned Physician: Ellie Iqbal Reviewed and Electronically Signed By: Ellie Iqbal Signed Date: 10/09/2024 10:40 ET Workstation ID: [id number] Transcribed By: Self Edit Transcribed Date: 10/09/2024 10:38 ET Minnie Baker MD IM DXA PROCEDURES Final Result * Falls Risk Assessment (06/15/2023) [facility] Falls Risk Assessment abstracted [facility] Provider HEALTH MAINTENANCE Final Result * Depression Screening (06/15/2023) [facility] Depression Screening abstracted [facility] Provider HEALTH MAINTENANCE Final Result * Colonoscopy (08/05/2022) [facility] Colonoscopy No interpreta tion,abstr acted Anatomical Region Laterality Modality Other [facility] Provider HEALTH MAINTENANCE Final Result * Hepatitis C Screening (10/01/2015) Hepatitis C Screening abstracted us Historical Provider HEALTH MAINTENANCE Final Result from Last 3 Months or Most Recently Relevant to Health Maintenance Additional Health Concerns Active Problems Noted Date Diagnosed Date Autogenerated Problem 04/01/2025 Insurance MEDICARE [place]ICAID [place] [employer] Care Teams Service Officer Relationship Specialty Start Date End Date Minnie Baker MD [address] [place] [address] PCP - General Internal Medicine 12/21/19
== END 2025-05-13 12:55 | disposition home or self-care (01) ==
PROVIDERS: PCP Internal Medicine; Visit Provider Physical Medicine & Rehabilitation
PROC: (CPT 64479; principal; 2025-05-13 11:00)
DX: M54.14 Radiculopathy, thoracic region (principal); M54.2 Cervicalgia; Z77.123 Contact with and (suspected) exposure to radon and other naturally occurring radiation; Z85.118 Personal history of other malignant neoplasm of bronchus and lung; Z79.899 Other long term (current) drug therapy; Z88.0 Allergy status to penicillin; Z88.8 Allergy status to other drugs, medicaments and biological substances; Z98.890 Other specified postprocedural states; Z87.891 Personal history of nicotine dependence
CPT/HCPCS: 64479; J1100; J2003; J2250; J2704

== ENCOUNTER → 2025-05-13 10:09 | Outpatient (BNV) | payer MEDICARE, MEDICAID, SELFPAY | PROVIDERS: PCP Internal Medicine; Visit Provider Physical Medicine & Rehabilitation | DX: M54.14 Radiculopathy, thoracic region (principal) | CPT/HCPCS: 64479 ==

== ENCOUNTER 2025-06-24 09:47 | Outpatient (AMB) | payer MEDICARE, MEDICAID, SELFPAY ==
--- NOTE | 2025-06-24 09:49 | A.PHYSOV_ITS ---
Vital Signs 06/24/25 09:50 Height 5 ft 2 in Weight 130 lb BMI 23.8 Intake Visit Reasons: Follow up after injection 05/13/25 Intake Note: Patient is a 69 year old female here to follow up after Right T7 TFE on 05/13/25. Passenger Barge Master Required: No Allergies Penicillins Allergy (Verified 06/24/25 09:50) Hives HPI Comments Details: History of Present Illness The patient is a 69 year old female presenting for chronic pain management. Patient underwent right T7-8 transforaminal injection on 05/13/2025. Patient reports 60% reduction of her pain. She is able to move the thoracic spine with less difficulty. She denies any pain with rotary movements. Patient has responded very well to cervical facet as well as lumbar transforaminal injection. Patient had her last set of injections in February of this year with greater than 50% reduction of pain. Her pain is returning despite performing her physician directed home exercise plan and using her medications as prescribed. She is requesting repeat cervical facet and lumbar transforamin al injection. She has a pain level today of 7/10. Pain Description - Location: The patient reports pain in her spine and neck. - Status: She notes her mid-back pain has improved after an injection, but her spine and neck pain are currently acting up bad. - Exacerbating factors: The patient reports cold weather worsens her neck and spine pain. Results - No diagnostic results were discussed during the visit. [facility] Medical History (Updated 06/24/25 @ 10:08 by ANGELA Porras) H/O: lung cancer Prediabetes HLD (hyperlipidemia) Osteoporosis CKD (chronic kidney disease) stage 3, GFR 30-59 ml/min GERD (gastroesophageal reflux disease) Cirrhosis Esophageal varices Coronary artery calcification AUBREY (obstructive sleep apnea) COPD (chronic obstructive pulmonary disease) Seizure disorder Migraine Surgical History History of lobectomy of lung Social History Patient Tobacco Use Status: Former Tobacco user Review of Systems Narrative Review of Systems - Musculoskeletal: Reports spine and neck pain that is worsening and exacerbated by cold weather. - She also reports improvement in her mid-back pain following an injection. - All other systems were not discussed and are negative by default. Physical Exam Exam Exam: Physical Exam -Cervical Spine: She is tender to the left cervical spur paraspinal musculature. She has limited range of motion of her cervical spine at end range throughout. Thoracic spine: She is less tender to the T7 spinous process. Her chest rises and falls symmetrically. No scapular winging. Special Tests: Axial Compression test: Negative Spurlings test: Negative Lhermitte's sign is Negative Upper Extremities: Full range of motion bilateral upper extremities. Equal systems test engineer strength bilaterally. Neuro: Sensation: Intact to upper extremities bilateral to light touch Strength C5 (Elbow Flexion): 5/5 on the left and 5/5 on the right. C6 (Elbow Ext): 5/5 on the left and 5/5 on the right. C7 (Elbow Ext): 5/5 on the left and 5/5 on the right. C8 (Finger Flex): 5/5 on the left and 5/5 on the right. T1 (Finger Abd/Add): 5/5 on the left and 5/5 on the right. DTR: C5 (Biceps): Left 2 Right 2 C6 (Brachioradialis): Left 2 Right 2 C7 (Triceps): Left 2 Right 2 Fowler sign: Negative No pathologic clonus. No involuntary movement. Lumbar Spine: Examination of her lumbar spine, she is tender to the lumbar facets. She is otherwise nontender. Full range of motion of the lumbar spine. She does have an increase in pain with facet loading. Special Tests: Lhermittes sign was negative Heel Toe walk is normal Left straight leg raise: Negative Right straight leg raise: Negative Special tests Leonardo test is negative Ganslen's test is negative SI Joint compression test negative Katia test negative Piriformis stretch is negative Lower Extremities: Full range of motion bilateral lower extremities. No calf pain or edema. Neuro: Sensation: Intact to lower extremities bilaterally Strength L2 (Psoas): 5/5 on the left and 5/5 on the right. L3 (Quads): 5/5 on the left and 5/5 on the right. L4 (Ant tibialis): 5/5 on the left and 5/5 on the right. L5 (EHL) 5/5 on the left and 5/5 on the right. S1 (Gastroc): 5/5 on the left and 5/5 on the right. DTR L4: (Patellar) Left 2 Right 2 S1: (Achilles) Left 2 Right 2 Babinski Downgoing No pathologic clonus. No involuntary movement. Vital Signs: BMI result Body Mass Index 23.8 Assessment & Plan Assessment & Plan (1) Thoracic radiculopathy: Code(s): M54.14 - Radiculopathy, thoracic region Category: Medical (2) Cervicalgia: Code(s): M54.2 - Cervicalgia Category: Medical (3) Lumbar radiculopathy: Code(s): M54.16 - Radiculopathy, lumbar region Category: Medical Plan Pain Management - Analgesia: The patient reports some relief of her mid-back pain after a recent injection. - Activities of Daily Living: Not discussed. - Adverse Effects: Not discussed. - Affect: Not discussed. - Aberrant Drug Related Behaviors: None noted. Plan Patient was informed and verbally consented to the use of an ambient scribe for clinic note documentation during this visit. 1. Mid-Back Pain The patient reports her mid-back is feeling better following an injection in May. She reports 60% reduction of her pain from T7 transforaminal injection. No new interventions were discussed for this issue. 2. Neck Pain The patient reports her neck pain is worsening, exacerbated by cold weather. An order will be placed for a neck injection as requested. As she did received greater than 50% reduction of her pain from the previous injection in February. 3. Spine Pain The patient reports her spine pain is worsening, exacerbated by cold weather. An order will be placed for a spine injection as requested. As she did receive greater than 50% reduction of her pain from previous injection in February. Patient has failed conservative treatment. Discussion Notes I discussed with the patient that I will order injections for her neck and spine pain as she requested. I also informed her that there are some changes in the practice and asked for her patience as we adjust. Patient Instructions - We will order the injections for your neck and spine pain as we discussed. - Please be patient with us as we get used to the new system in the office. Orders: Referrals Physiatry Procedure Notification M54.16 - Radiculopathy, lumbar region, M54.2 - Cervicalgia Coding Level of Care Code Est Pt Level 3 (32375) Diagnoses Thoracic radiculopathy M54.14 Cervicalgia M54.2 Lumbar radiculopathy M54.16
[2025-06-24 09:50] VITALS: BMI 23.8
--- OUTSIDE RECORDS SUMMARY | 2025-06-24 10:29 | XMS_ITS | Encounter Summary ---
Author Organization [facility] [place] [address] Care Team Providers Care Filter Changing Technician Name Role Phone Minnie Baker MD Primary Care Provider [phone] Encounter Details Date Type Department Care Team (Late st Contact Info) Description 05/15/2025 Results Follow-Up [facility] [address] [place] [address] Flora Avina NP [address] [place] [address] [address] [place] [phone] Social History Tobacco Use Types Packs/Day Years [...] for your loved ones. For example, child life assistant or elderly care for an older adult? [...] Care Team (Late st Contact Info) Description 10/09/2025 9:45 AM EDT Office Visit Adult Medicine [facility] [address] [place], [place] [phone] Minnie Baker MD [address] [place], [place] 10/16/2025 11:25 AM EDT Office Visit Pulmonology [facility] [address] [place] [phone] Dariana Cramer NP [address] [place] [phone] documented as of this encounter Goals Goal [...] documented as of this encounter Care Teams Filter Changing Technician Relationship Specialty Start Date End Date Minnie Baker MD [address] [place] [address] PCP - General Internal Medicine 12/21/19 documented as of this encounter
--- OUTSIDE RECORDS SUMMARY | 2025-06-24 10:29 | XMS_ITS | Clinical Summary ---
Author Organization [facility] Address [address] [place] [address] Care Team Providers Care Bar Captain Name Role Phone Minnie Baker Primary Care Provider [phone] Allergies Active Allergy Reactions Criticality Noted Date Comments Omeprazole Diarrhea Low 12/17/2015 Diarrhea and oral ulceration. Diarrhea and oral ulceration. Penicillins Unknown Medium 06/03/2011 Other reaction(s): Hives/Urticaria Medications traZODone (DESYREL) 100 MG tablet 0.5 tablets (50 mg total) at bedtime. 0 12/29/2018 Active ibuprofen (ADVIL,MOTRIN) 200 MG tablet Take 1 tablet (200 mg total) by mouth as needed. Active albuterol HFA (VENTOLIN; PROAIR; PROVENTIL) 90 mcg/actuation aerosol inhaler as needed. 01/03/2019 Ac tive lactulose (ENULOSE) 10 gram/15 mL solution as needed. 11/08/2018 Active mesalamine (LIALDA) 1.2 gram EC tablet Take 1 tablet (1.2 g total) by mouth. Only when dizzy/needed 11/11/2020 Active amLODIPine (NORVASC) 10 MG tablet Take 1 tablet (10 mg total) by mouth daily. 06/02/2023 Active gabapentin (NEURONTIN) 300 MG capsule Take 1 capsule (300 mg total) by mouth at bedtime. 06/02/2023 Active lamoTRIgine (LaMICtal) 100 MG tablet Take 1 tablet (100 mg total) by mouth every morning & every evening. 180 tablet 3 11/15/2024 Active Active Problems Problem Noted Date Diagnosed Date Centrilobular emphysema 11/30/2018 Malignant neoplasm of left lung 11/30/2018 Coronary artery calcification 08/03/2017 Overview (02/20/2019): Noted on low-dose CAT scan of chest Hyperlipidemia 08/03/2017 Overview (02/20/2019): LDL cholesterol 152, 08/03/2017 Prediabetes 04/15/2017 Overview (02/20/2019): Glucose 114 04/12/2017 Chronic left shoulder pain 01/26/2017 History of upper gastrointestinal hemorrhage 06/2015 Overview (02/20/2019): 2001 Due to esophageal varices Osteopenia 04/27/2016 Alcoholic cirrhosis 10/22/2010 Overview (02/20/2019): 10/25/2006---MELD=7. 07/04/2007---MELD=8. 02/15/2008---MELD=7. Degenerative arthritis of cervical spine 011 Radiculitis, cervical 09/22/2010 Rotator cuff tendinitis 09/22/2010 Cataract 11/03/2007 Chronic obstructive pulmonary disease 08/01/2007 Esophageal varices 05/18/2005 Overview (02/20/2019): Endo 02-21-2006--no sig varices. No varices 10/28/2006, 10/24/2009, 08/08/2012, 11/12/2015. GERD without esophagitis 05/18/2005 Osteoporosis 05/18/2005 Overview (02/20/2019): IMO update Social History Tobacco Use Types Packs/Day Years Used Date Smoking Tobacco: Former Smokeless Tobacco: Never Tobacco Cessation:Counseling Given: Not Answered Comments:quit Alcohol Use Standard Drinks/Week Comments Never 0 (1 standard drink = 0.6 oz pur e alcohol) AUDIT-C Answer Date Recorded Frequency of Alcohol Consumption Never 01/23/2019 Average Number of Drinks Not on file 019 Frequency of Binge Drinking Not on file 12/27 Comments Unknown Sex and Gender Information Value Date Recorded Sex Assigned at Female 09/07/2022 10:01 AM EDT Legal Sex Female 12:45 AM EST Gender Identity Female 09/07/2022 10:01 AM EDT Sexual Orientation Not on file Last Filed Vital Signs Vital Sign Reading Time Taken Comments Blood Pressure 136/70 11/16/2023 8:05 AM EDT Pulse 48 11/16/2023 8:05 AM EDT Temperature - - Respiratory Rate - - Oxygen Saturation - - Inhaled Oxygen Concentration - - Weight 67.1 kg (148 lb) 11/25/2020 8:43 AM EDT Height 160 cm (5' 3 ) 02/20/2019 11:08 AM EDT Body Mass Index 26.22 02/20/2019 11:08 AM EDT Plan of Treatment Upcoming Encounters Date Type Department Care Team (Late st Contact Info) Description 08/09/2025 10:15 AM EST Office Visit [facility], [address] [place] [address] Neurology at [address] [address] Sari Novak MD PhD [address] [place] [id number] In Person with Physician Health Maintenance Due Date Last Done Comments Depression Screening 1966 Hepatitis C Screening 1972 Breast Cancer Screening 1994 CT Colonography 11/30/1999 Colonoscopy 11/30/1999 Colorectal Cancer Screening 11/30/1999 FIT 11/30/1999 FOBT 11/30/1999 Multitarget Stool DNA (Cologuard) 11/30/1999 Sigmoidoscopy 11/30/1999 Zoster Vaccine (1 of 2) 2004 Blood Pressure 11/15/2024 11/16/2023 Lipid Panel 11/15/2024 11/16/2023, 10/26, 03/08/2023, Additional history exists COVID-19 Vaccine ( season) 2025 04/06/2024, 03/28/2023, 03/28/2023, Additional history exists Influenza Vaccine (#1) 2025 , 03/18/2023, 03/14/2022, Additional history exists Medicare Subsequent AWV G0439 06/30/2025 05/31/2024, 06/15/2023 DTaP,Tdap,and Td Vaccines (5 - Td or Tdap) 2033 11/30/2023, 08/22/2013, 12/17/2002, Additional history exists Medicare Initial AWV G0438 Completed 02/15/2022, Pneumococcal Vaccine: 50+ Years Completed 12/14/2022, 07/11/2020, 08/01/2007 Meningococcal B Vaccines Aged Out No longer eligible based on patient's age to complete this topic Meningococcal Vaccines Aged Out No lo nger eligible based on patient's age to complete this topic Procedures Procedure Name Priority Date/Time Associated Diagnosis Comments LIPID PANEL Routine 11/16/2023 8:53 AM EDT History of seizures Migraine with aura and without status migrainosus, not intractable from Last 3 Months or Most Recently Relevant to Health Maintenance Results * (ABNORMAL) Lipid Panel (11/16/2023 8:53 AM EDT) [facility] Signature Cholesterol 165 125 - 200 mg/dL [address] 11/16/2023 10:31 AM EDT [facility] Triglycerides 74 55 - 150 mg/dL [address] 11/16/2023 10:31 AM EDT [facility] HDL Cholesterol 69(H) 40 - 65 mg/dL [address] 11/16/2023 10:31 AM EDT [facility] LDL Cholesterol 81 <130 mg/dL [address] 11/16/2023 10:31 AM EDT [facility] Non-HDL Cholesterol 96 <190 mg/dL [address] 11/16/2023 10:31 AM [facility] Comment: Normal primary prevention <190 mg/dL High risk primary prevention <160 mg/dL Secondary prevention <130 mg/dL High risk secondary prevention <100 mg/dL VLDL Cholesterol 15 8 - 71 mg/dL [address] 11/16/2023 10:31 AM T [facility] Ratio Chol/HDL 2.4 2.0 - 5.[address] 11/16/2023 10:31 AM EDT [facility] Patient Fasting No 10:31 AM EDT [facility] Blood Venipuncture / Unknown 11/16/2023 8:53 AM EDT 11/16/2023 9:29 AM EDT Sari Novak MD PhD LAB BLOOD ORDERABLES Final Result [address] [address] from Last 3 Months or Most Recently Relevant to Health Maintenance Insurance MEDICARE [facility] MEDICARE [place] MEDICARE Member Subscriber Plan / Payer ( fective 2004-) Name:Hetal Craft Member ID:[id number] Relation to Subscriber:Self Name:Hetal Craft Subscriber ID:[id number] Payer ID:Not on file Group ID:Not on file Type:Traditional / Indemnity Address: [address] [place], [place] [id number] [place] [address] MEDICARE [facility] Care Teams Bar Captain Relationship Specialty Start Date End Date Minnie Baker PCP - General 03/03/23
--- OUTSIDE RECORDS SUMMARY | 2025-06-24 10:29 | XMS_ITS | Clinical Summary ---
Author Organization [facility] Prior to 11/24/24 Address [address] [place] [address] Care Team Providers Care Group Exercise Manager Name Role Phone Ravi Kurtz MD Primary Care Provider [phone] Allergies Active Allergy Reactions Criticality Noted Date Comments Egg-Derived Products 03/21/2007 Omeprazole Diarrhea Low 12/17/2015 Diarrhea and oral ulceration. Oxycodone-Aspirin 12/25/2014 Penicillins Medium 06/03/2011 Other reaction(s): Hives/Urticaria Medications Medication Sig Dispensed Refills Start Date End Date Status traZODone (DESYREL) 100 MG tablet Take 100 mg by mouth. 0 Active albuterol (PROVENTIL HFA;VENTOLIN HFA) 108 (90 BASE) MCG/ACT inhaler Inhale 2 puffs into the lungs. 0 11/25/2015 Active lactulose (CHRONULAC) 10 GM/15ML solution TAKE 15 ML BY MOUTH 2 TIMES DAILY. 0 08/18/2016 Active lactulose (CHRONULAC) 10 GM/15ML solution TAKE 15 ML BY MOUTH 2 TIMES DAILY. 1 12/15/2016 Active oxyCODONE-acetaminophe n (PERCOCET) 5-325 MG per tablet TAKE 1 TO 2 TABLETS BY MOUTH EVERY 4 HOURS NEEDED FOR PAIN 0 11/18/2016 Active ibuprofen (ADVIL,MOTRIN) 200 MG tablet Take 200 mg by mouth. 0 Active traZODone (DESYREL) 100 MG tablet TAKE 1 AND 1/2 TABS BY MOUTH AT BEDTIME. 0 02/09/2017 Active albuterol (PROVENTIL HFA;VENTOLIN HFA) 108 (90 Base) MCG/ACT inhaler Inhale 2 puffs into the lungs. 0 11/25/2015 Active lactulose (CHRONULAC) 10 GM/15ML solution TAKE 15 ML BY MOUTH 2 TIMES DAILY. 0 07/19/2017 Active traZODone (DESYREL) 100 MG tablet TAKE 1 AND 1/2 TABS BY MOUTH AT BEDTIME. 0 07/11/2017 Active atorvastatin (LIPITOR) tablet 10 mg TAKE 1 TABLET BY MOUTH DAILY 5 09/06/2017 Active Active Problems Problem Noted Date Diagnosed Date Chronic left shoulder pain 01/12/2019 Biceps tendinitis of left shoulder 09/05/2018 Subacromial bursitis of left shoulder joint 04/29 Chronic left shoulder pain 01/26/2017 Shoulder, capsulitis, adhesive 01/26/2017 Family History Medical History Relation Name Comments Arthritis Maternal Grandmother Cancer Maternal Grandmother Arthritis Mother Cancer Mother Relation Name Status Comments Maternal Grandmother Mother Social History Tobacco Use Types Packs/Day Years Used Date Smoking Tobacco: Former Cigarettes 0.5 Sex and Gender Information Value Date Recorded Sex Assigned at Not on file Gender Identity Not on file Sexual Orientation Not on file Job Start Date Occupation Industry Not on file Not on file Not on file Last Filed Vital Signs Vital Sign Reading Time Taken Comments Blood Pressure - - Pulse - - Temperature - - Respiratory Rate - - Oxygen Saturation - - Inhaled Oxygen Concentration - - Weight 63.5 kg (140 lb) 02/25/2017 1:52 PM EDT Height 160 cm (5' 3 ) 02/25/2017 1:52 PM EDT Body Mass Index 24.8 02/25/2017 1:52 PM EDT Plan of Treatment Health Maintenance Due Date Last Done Comments Hepatitis C Screening 1955 COVID-19 Vaccine (#1) 05[birth year]31/1955 Depression Screening 1966 Preventative Health Evaluation 1972 Colon Cancer Screening (Colonoscopy) 11/30/1999 Breast Cancer Screening (Mammogram) 2004 Shingrix-Zoster Vaccine (1 of 2) 2004 Fall Risk Assessment 11/30/2019 Osteoporosis Screening (DEXA Scan) 11/30/2019 Pneumococcal Vaccine (2 of 2 - PCV) 11/30/2019 08/01/2007 DTap / Tdap / Td (2 - Td or Tdap) 08/22/2023 014 Influenza Vaccine (#1) 2025 RSV Adult > 60+ Yrs or Pregn ant (1 - 1-dose 75+ series) 2029 Hepatitis B Vaccines Aged Out No long er eligible based on patient's age to complete this topic RSV Ped < 20 months Aged Out No longe r eligible based on patient's age to complete this topic Care Teams Group Exercise Manager Relationship Specialty Start Date End Date Ravi Kurtz MD [address] [place] [address] [phone] PCP - General Internal Medicine 01/21/17
--- OUTSIDE RECORDS SUMMARY | 2025-06-24 10:29 | XMS_ITS | Clinical Summary ---
Author Organization [address] Address [address] [place] [address] Phone Care Team Providers Care [employer] Football[employer] Name Role Phone Minnie Baker MD Primary Care Provider [phone] Allergies Active Allergy Reactions Criticality Noted Date [...] Active fluticasone propionate (FLONASE) 50 mcg/actuation nasal sprayIndications :Allergic rhinitis, unspecified Administer 2 sprays into each [...] 04/22/20 25 Active amLODIPine (NORVASC) 5 mg tabletIndication s:Primary hypertension Take 1 tablet (5 mg total) by mouth 1 (one) time each day. 90 each 3 05/07/20 25 026 Active lactulose (CHRONULAC) solution Take 30 mL (20 g total) by mouth 2 (two) times a day. 1800 mL 3 06/04/20 25 Active linaCLOtide (Linzess) 145 mcg capsule Take 1 capsule (145 mcg total) by mouth 1 (one) time each day before breakfast. 90 capsule 06/04/20 25 Active lactulose (CHRONULAC) solution Take 30 mL (20 g total) by mouth 2 (two) times a day. 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 Left lower lobe segmental resection 05/2016 for cancer. Dysphagia 04/16/2024 CKD (chronic kidney disease) stage 3, GFR 30-59 ml/min 02/15/2022 Low back pain 02/15/2022 Overview (04/16/2024): Chronic sciatica Obstructive sleep apnea 10/30/2021 Overview (05/31/2024): UNTREATED as of 05/31/24 [facility] Home sleep test 10/22/2021; weight 145; BMI [...] to discuss. Diverticulosis 11/19/2020 Ulcerative colitis without complications 021 Hypertension 08/24/2019 Overview (09/02/2024): Assessment & Plan [...] ECG 12 lead Prediabetes 04/15/2017 Cirrhosis, alcoholic 10/22/2010 Overview (04/16/2024): 10/25/2006---MELD=7. 07/04/2007---MELD=8. 02/15/2008---MELD=7. Cervicalgia 09/22/2010 Cataract 11/03/2007 COPD (chronic obstructive pulmonary disease) 10/2007 Esophageal reflux 05/18/2005 Esophageal varices 05/18/2005 Overview (04/16/2024): Endo 02-21-2006--no sig varices. No [...] capsulitis, adhesive 01/26/2017 05/31/2024 Rotator cuff tendinitis 09/22/2010 12/0 10/2023 Encounters Date Type Department Care Team Description 06/12/2025 2:29 PM EST - 06/12/2025 11:59 PM EST Hospital Encounter Radiology Department - [address] [phone] Abnormal mammogram Discharge Disposition: Home or Self Care 06/12/2025 2:29 PM EST - 06/12/2025 11:59 PM EST Hospital Encounter Radiology Department - [address] [phone] Abnormal mammogram Discharge Disposition: Home or Self Care 06/09/2025 Results Follow-Up Gastroenterology - [address] [place] [phone] Cindy Cabezas PA 06/06/2025 4:53 PM EST - 06/06/2025 11:59 PM EST Hospital Encounter [facility] CT Scan [address] [place] [phone] Encounter for screening for malignant neoplasm of respiratory organs; Personal history of nicotine dependence Discharge Disposition: Home or Self Care 05/31/2025 11:19 AM EST - 05/31/2025 11:59 PM EST Hospital Encounter [facility] Xray [address] [place] [phone] Constipation, unspecified constipation type Discharge Disposition: Home or Self Care 05/30/2025 Telephone Gastroenterology - [place] [address] [place] [phone] Cindy Cabezas PA 05/15/2025 Results Follow-Up [facility] - [facility] [address] [place] [address] Flora Avina NP 05/15/2025 Telephone Lung Screening Program - [place] [address] [place] [address] Sejal Lux MA 05/09/2025 9:05 AM EST Lab Draw Station - [address] Hyperlipidemia, unspecified hyperlipidemia type 05/07/2025 2:30 PM EST Office Visit [facility] [address] [place] [address] Selvin Patel MD Coronary artery calcification (Primary Dx); Primary hypertension; Other hyperlipidemia 04/30/2025 Telephone [facility] [address] [place] [phone] Selvin Patel MD 04/16/2025 9:45 AM EDT Office Visit Pulmonology [facility] [address] [facility] [address] [place] [phone] Dariana Cramer NP Chronic obstructive pulmonary disease, unspecified COPD type (CMS/HCC V24, CMS/HCC V28) (Primary Dx); History of lung cancer 04/13/2025 8:30 AM EDT - 04/13/2025 11:59 PM EDT Hospital Encounter Radiology Department [address] [phone] Encounter for screening mammogram for breast cancer Discharge Disposition: Home or Self Care 04/09/2025 3:00 PM EDT Office Visit Adult Medicine [address] [phone] Tamara Awad PA Primary hypertension (Primary Dx) 04/02/2025 8:57 AM EDT Anesthesia Event [facility] Endoscopy [address] [place] [phone] Vicky William MD Steele, Matthew G, ENERGY EFFICIENT SITE MANAGER 04/02/2025 8:35 AM EDT - 04/02/2025 11:59 PM EDT Hospital Encounter [facility] Endoscopy [address] [place] [phone] Vicky William MD Muslu, Halim Ozgur, MD Steele, Matthew G, ENERGY EFFICIENT SITE MANAGER Heartburn Discharge Disposition: Home or Self Care 04/01/2025 Results Follow-Up Gastroenterology [facility] [address] [facility] [address] [place] [phone] Cindy Cabezas PA 04/01/[address] [facility] 175 [facility] [address] [facility] [address] [place] [address] Shruthi Bolanos MA 03/26/2025 9:12 AM EDT - 03/26/2025 11:59 PM EDT Hospital [facility] Xray [address] [place] [address] Alcoholic cirrhosis of liver without ascites (CMS/HCC V24, CMS/HCC V28); Hiatal hernia with GERD without esophagitis Discharge Disposition: Home or Self Care from Last 3 Months Immunizations Immunization Administration Dates Next Due COVID-19 (Pfizer/Comirnaty) 12yo and older 03/28 Hepatitis B (Xmhjlya-C-Drfae , Recombivax HB-Adult) 19yo and older 07/09/2003,02/08/2003,01/09/2003 [...] R upper lobectomy; lung ca HERNIA REPAIR 2014 inguinal UPPER GASTROINTESTINAL ENDOSCOPY 11/12/2015 Normal upper [...] reflux COPD (chronic obstructive pu lmonary disease) ([facility] V24, [facility] V28) 08/01/2007 Esophageal varices ([facility] V24, [facility] V28) 05/18/2005 Endo 02-21-2006--no sig varic es. No varices 10/28/2006, 10/24/2009, 08/08/2012. Cirrhosis ([facility]/HCC V24, [facility] V28) Esophagitis Chronic ischemic heart disease Cervical spondylosis without myelopathy Hyperlipidemia Low back pain 02/15/2022 Chronic sciatica CKD (chronic kidney disease) stage 3, GFR 30-59 ml/min ([facility] V24, [facility] V28) 02/15/2022 Tubular adenoma of colon Diverticulosis DX:Diverticulosi s History of dysplastic nevus 09/02/2024 Lung cancer ([facility] V24, [facility] V28) S/P LOBECTOMY Family History Medical History Relation [...] care for your loved ones. For example, attendant child activity or elderly care for an older adult? [...] 9:45 AM EDT Office Visit Adult Medicine [facility] [address] [place], [place] [phone] Minnie Baker MD [address] [place], [place] 10/16/2025 11:25 AM EDT Office Visit Pulmonology - [place] [address] [address] [place] [address] Dariana Cramer, CHRIS [address] [place] [address] Health Maintenance Due Date Last Done Comments [...] 04/02/2025 , 05/31/2024, 06/15/2023 Breast Cancer Screening 06/12/2027 06/12/20, 04/13/2025, 03/15/2024, Additional history exists Colorectal Cancer Screening: [...] Procedure Name Priority Date/Time Associated Diagnosis Comments US BREAST LIMITED LEFT Routine 06/12/2025 2:58 PM EST Abnormal mammogram MG MAMMO DIGITAL DIAGNOSTIC W ROCKY LEFT Routine 06/12/2025 2:49 PM EST Abnormal mammogram CT LUNG SCREENING Routine 06/06/2025 5:0 1 PM EST Encounter for screening for malignant neoplasm of respiratory organs Personal history of nicotine dependence XR ABDOMEN 1 VIEW Routine 05/31/2025 11: 42 AM EST Constipation, unspecified constipation type LIPID PANEL WITH REFLEX TO DIRECT LDL [...] Routine 06/15/2023 FALLS RISK ASSESSMENT Routine 06/15/2023 COLONOSCOPY Routine 08/05/2022 HEPATITIS C SCREENING Routine 10/01/2015 from Last 3 Months or Most Recently Relevant to Health Maintenance Results * US Breast Limited Left (06/12/2025 2:58 PM EST) Anatomical Region Laterality Modality Breast Left Ultrasound 06/12/2025 2:51 PM EST Impressions 06/12/2025 3:06 PM EST Benign. Findings and recommendations were conveyed to the patient. BI-RADS CATEGORY: 1 - NEGATIVE RECOMMENDATION: Return to annual mammography. Return to annual mammography. Return to annual mammography. Mammo Location: [facility], [address] [place] [address], [id number], . -------- FINAL REPORT -------- Dictated By: Ellie Iqbal Dictated Date: 06/12/2025 14:51 ET Assigned Physician: Ellie Iqbal Reviewed and Electronically Signed By: Ellie Iqbal Signed Date: 06/12/2025 15:06 ET Workstation ID: [id number] Transcribed By: Self Edit Transcribed Date: 06/12/2025 14:56 ET Narrative 06/12/2025 3:06 PM EST CLINICAL: 69 years old, Female, focal asymmetry left upper slightly outer breast on screening mammogram of 04/13/2025. COMPARISON: Mammograms dating back to 06/08/2018. FINDINGS: MAMMOGRAPHY TECHNIQUE: ML, spot compression MLO, and spot compression CC views of the left breast were obtained digitally with 3-D mammogram (digital breast tomosynthesis). Computer-aided detection was utilized in evaluation of this exam (CAD). The focal asymmetry suggested in the slightly upper outer left breast on screening study effaces on the spot compression views and is not clearly visible on the ML view. BREAST DENSITY: B - There are scattered areas of fibroglandular density. ULTRASOUND TECHNIQUE: Ultrasound evaluation of the upper left breast was performed. Portions of the upper inner and upper outer quadrants were examined. The retroareolar region was also examined. There is no evidence of morphologically suspicious mass. Procedure Note Ellie Iqbal MD - 06/12/2025 CLINICAL: 69 years old, Female, focal asymmetry left upper slightly outerbreast on screening mammogram of 04/13/2025. COMPARISON: Mammograms dating back to 06/08/2018. FINDINGS: MAMMOGRAPHY TECHNIQUE: ML, spot compression MLO, and spot compression CC views of theleft breast were obtained digitally with 3-D mammogram (digital breasttomosynthesis). Computer-aided detection was utilized in evaluation ofthis exam (CAD). The focal asymmetry suggested in the slightly upper outer left breast onscreening study effaces on the spot compression views and is not clearlyvisible on the ML view. BREAST DENSITY: B - There are scattered areas of fibroglandular density. ULTRASOUND TECHNIQUE: Ultrasound evaluation of the upper left breast was performed.Portions of the upper inner and upper outer quadrants were examined. Theretroareolar region was also examined. There is no evidence of morphologically suspicious mass. IMPRESSION: Benign. Findings and recommendations were conveyed to the patient. BI-RADS CATEGORY: 1 - NEGATIVE RECOMMENDATION: Return to annual mammography. Return to annual mammography. Return toannual mammography. Mammo Location: [facility], [address] [place] [address], [id number], . -------- FINAL REPORT -------- Dictated By: Ellie Iqbal Dictated Date: 06/12/2025 14:51 ET Assigned Physician: Ellie Iqbal Reviewed and Electronically Signed By: Ellie Iqbal Signed Date: 06/12/2025 15:06 ET Workstation ID: [id number] Transcribed By: Self Edit Transcribed Date: 06/12/2025 14:56 ET us Minnie Baker MD IMG US PROCEDURES Final Result * MG Mammo Digital Diagnostic w Rocky Left (06/12/2025 2:49 PM EST) Anatomical Region Laterality Modality Breast Left Mammography 06/12/2025 2:51 PM EST Impressions 06/12/2025 3:06 PM EST Benign. Findings and recommendations were conveyed to the patient. BI-RADS CATEGORY: 1 - NEGATIVE RECOMMENDATION: Return to annual mammography. Return to annual mammography. Return to annual mammography. Mammo Location: [facility], [address] [place] [address], [phone], . -------- FINAL REPORT -------- Dictated By: Ellie Iqbal Dictated Date: 06/12/2025 14:51 ET Assigned Physician: Ellie Iqbal Reviewed and Electronically Signed By: Ellie Iqbal Signed Date: 06/12/2025 15:06 ET Workstation ID: [id number] Transcribed By: Self Edit Transcribed Date: 06/12/2025 14:56 ET Narrative 06/12/2025 3:06 PM EST CLINICAL: 69 years old, Female, focal asymmetry left upper slightly outer breast on screening mammogram of 04/13/2025. COMPARISON: Mammograms dating back to 06/08/2018. FINDINGS: MAMMOGRAPHY TECHNIQUE: ML, spot compression MLO, and spot compression CC views of the left breast were obtained digitally with 3-D mammogram (digital breast tomosynthesis). Computer-aided detection was utilized in evaluation of this exam (CAD). The focal asymmetry suggested in the slightly upper outer left breast on screening study effaces on the spot compression views and is not clearly visible on the ML view. BREAST DENSITY: B - There are scattered areas of fibroglandular density. ULTRASOUND TECHNIQUE: Ultrasound evaluation of the upper left breast was performed. Portions of the upper inner and upper outer quadrants were examined. The retroareolar region was also examined. There is no evidence of morphologically suspicious mass. Procedure Note Ellie Iqbal MD - 06/12/2025 CLINICAL: 69 years old, Female, focal asymmetry left upper slightly outerbreast on screening mammogram of 04/13/2025. COMPARISON: Mammograms dating back to 06/08/2018. FINDINGS: MAMMOGRAPHY TECHNIQUE: ML, spot compression MLO, and spot compression CC views of theleft breast were obtained digitally with 3-D mammogram (digital breasttomosynthesis). Computer-aided detection was utilized in evaluation ofthis exam (CAD). The focal asymmetry suggested in the slightly upper outer left breast onscreening study effaces on the spot compression views and is not clearlyvisible on the ML view. BREAST DENSITY: B - There are scattered areas of fibroglandular density. ULTRASOUND TECHNIQUE: Ultrasound evaluation of the upper left breast was performed.Portions of the upper inner and upper outer quadrants were examined. Theretroareolar region was also examined. There is no evidence of morphologically suspicious mass. IMPRESSION: Benign. Findings and recommendations were conveyed to the patient. BI-RADS CATEGORY: 1 - NEGATIVE RECOMMENDATION: Return to annual mammography. Return to annual mammography. Return toannual mammography. Mammo Location: [facility], [address] [place] [address], [id number], . -------- FINAL REPORT -------- Dictated By: Ellie Iqbal Dictated Date: 06/12/2025 14:51 ET Assigned Physician: Ellie Iqbal Reviewed and Electronically Signed By: Ellie Iqbal Signed Date: 06/12/2025 15:06 ET Workstation ID: [id number] Transcribed By: Self Edit Transcribed Date: 06/12/2025 14:56 ET us Minnie Baker MD IMG BI PROCEDURES Final Result * CT Lung Screening (06/06/2025 5:01 PM EST) Anatomical Region Laterality Modality Chest Computed Tomogra phy 06/08/2025 10:1 1 AM EST Impressions 06/08/2025 10:15 AM EST 1. Emphysematous changes throughout the lungs with stable tiny scattered nodular groundglass opacities throughout as well as reticular/ground glass opacity in the right middle lobe which presumably represents postinflammatory scarring. 2. Continue annual screening with low-dose CT in 12 months. ASSESSMENT: LungRADS Category2: Benign Appearance/Behavior - Continue annual screening with LDCT in 12 months Complete Lung RADS description including probabilities of malignancy and prevalence can be found at: [employer] Committee on Lung-RADS?. Lung- RADS Assessment Categories 2021. Available at [email or web address]. -------- FINAL REPORT -------- Dictated By: Fabrizio Gabriel Dictated Date: 06/08/2025 10:11 ET Assigned Physician: Fabrizio Gabriel Reviewed and Electronically Signed By: Fabrizio Gabriel Signed Date: 06/08/2025 10:15 ET Workstation ID: [id number] Transcribed By: Self Edit Transcribed Date: 06/08/2025 10:11 ET Narrative 06/08/2025 10:15 AM EST History: 69 year-old 21 pack-year former smoker, asymptomatic, for lung cancer screening. 10 years and stopped Comparison: 06/05/2024 Technique: Helical volumetric imaging of the thorax was performed, using low- dose technique, without IV contrast. DLP: 92 mGy/cm CT dose reduction technique utilized with one or more of the following: Automated exposure control and/or adjustment of the mA and/or kV according to patient size and/or use of iterative reconstruction technique. Findings: Lungs: Emphysematous changes throughout the lungs with stable tiny scattered nodular groundglass opacities throughout as well as reticular/ground glass opacity in the right middle lobe which is nonspecific but presumably represents postinflammatory scarring. Right upper lobectomy and left lower lobe wedge resection.. Pleura: There are no pleural effusions. No calcified or noncalcified pleural plaques. Mediastinum: Atherosclerotic plaque of the aorta and great vessels. Coronary artery calcifications. Upper Abdomen: This study was performed without contrast and with lower than standard dose. These factors reduce the sensitivity for detection of small lesions in the upper abdomen. Cholecystectomy. Osseous Structures: No suspicious osseous abnormalities. Procedure Note Fabrizio Gabriel MD - 06/08/2025 History: 69 year-old 21 pack-year former smoker, asymptomatic, for lungcancer screening. 10 years and stopped Comparison: 06/05/2024 Technique: Helical volumetric imaging of the thorax was performed, usinglow-dose technique, without IV contrast. DLP: 92 mGy/cm CT dose reduction technique utilized with one or more of the following:Automated exposure control and/or adjustment of the mA and/or kV accordingto patient size and/or use of iterative reconstruction technique. Findings: Lungs: Emphysematous changes throughout the lungs with stable tinyscattered nodular groundglass opacities throughout as well asreticular/ground glass opacity in the right middle lobe which isnonspecific but presumably represents postinflammatory scarring. Rightupper lobectomy and left lower lobe wedge resection.. Pleura: There are no pleural effusions. No calcified or noncalcifiedpleural plaques. Mediastinum: Atherosclerotic plaque of the aorta and great vessels.Coronary artery calcifications. Upper Abdomen: This study was performed without contrast and with lowerthan standard dose. These factors reduce the sensitivity for detection ofsmall lesions in the upper abdomen. Cholecystectomy. Osseous Structures: No suspicious osseous abnormalities. IMPRESSION: 1. Emphysematous changes throughout the lungs with stable tiny scatterednodular groundglass opacities throughout as well as reticular/ground glassopacity in the right middle lobe which presumably representspostinflammatory scarring. 2. Continue annual screening with low-dose CT in 12 months. ASSESSMENT: LungRADS Category2: Benign Appearance/Behavior - Continue annual screeningwith LDCT in 12 months Complete Lung RADS description including probabilities of malignancy andprevalence can be found at: [employer] Committee onLung-RADS?. Lung-RADS Assessment Categories 2021. Available [email or web address]. -------- FINAL REPORT -------- Dictated By: Fabrizio Gabriel Dictated Date: 06/08/2025 10:11 ET Assigned Physician: Fabrizio Gabriel Reviewed and Electronically Signed By: Fabrizio Gabriel Signed Date: 06/08/2025 10:15 ET Workstation ID: [id number] Transcribed By: Self Edit Transcribed Date: 06/08/2025 10:11 ET us Melvin Corea MD IMG CT PROCEDURES Final Result * XR Abdomen 1 View (05/31/2025 11:42 AM EST) Anatomical Region Laterality Modality Body Radiographic Yanely ging 05/31/2025 2:13 PM EST Impressions 05/31/2025 2:16 PM EST No evidence of high-grade small bowel obstruction or definite evidence of pneumoperitoneum. Large amount of fecal residue throughout the colon -------- FINAL REPORT -------- Dictated By: Bryant Rendon Dictated Date: 05/31/2025 14:13 ET Assigned Physician: Bryant Rendon Reviewed and Electronically Signed By: Bryant Rendon Signed Date: 05/31/2025 14:16 ET Workstation ID: [id number] Transcribed By: Self Edit Transcribed Date: 05/31/2025 14:13 ET Narrative 05/31/2025 2:16 PM EST EXAMINATION: ABDOMEN CLINICAL INFORMATION: Bloating. Constipation COMPARISON: Upright dovetailer radiograph 03/26/25 TECHNIQUE: Frontal view of the abdomen FINDINGS: There are surgical clips in the right upper quadrant. There is high density in the deep left pelvis which could be opaque contrast. There is a large amount of fecal residue throughout the colon. There is a mild amount of gas within nondistended small bowel. There is no definite suspicious mass or collection. There is no pneumatosis or definite evidence of pneumoperitoneum. There is arterial calcification. No suspicious abnormality in the visualized lower chest area there is likely some metallic suture in the left lower lung. Procedure Note Bryant Rendon MD - 05/31/2025 EXAMINATION: ABDOMEN CLINICAL INFORMATION: Bloating. Constipation COMPARISON: Upright dovetailer radiograph 03/26/25 TECHNIQUE: Frontal view of the abdomen FINDINGS: There are surgical clips in the right upper quadrant. There is highdensity in the deep left pelvis which could be opaque contrast. There is a large amount of fecal residue throughout the colon. There is amild amount of gas within nondistended small bowel. There is no definite suspicious mass or collection. There is nopneumatosis or definite evidence of pneumoperitoneum. There is arterial calcification. No suspicious abnormality in the visualized lower chest area there islikely some metallic suture in the left lower lung. IMPRESSION: No evidence of high-grade small bowel obstruction or definite evidence ofpneumoperitoneum. Large amount of fecal residue throughout the colon -------- FINAL REPORT -------- Dictated By: Bryant Rendon Dictated Date: 05/31/2025 14:13 ET Assigned Physician: Bryant Rendon Reviewed and Electronically Signed By: Bryant Rendon Signed Date: 05/31/2025 14:16 ET Workstation ID: [id number] Transcribed By: Self Edit Transcribed Date: 05/31/2025 14:13 ET Cindy MILLER IMG XR PROCEDURES Final Resul t * Lipid panel with reflex to direct LDL (05/09/2025 9:07 AM EST) Cholesterol 168 0 - 200 mg/dL LAB CHEMISTRY METHOD 05/09/2025 4:04 PM [facility] Triglycerides 78 0 - 150 mg/dL LAB CHEMISTRY METHOD 05/09/2025 4:04 PM [facility] HDL 69 >=40 mg/dL LAB CHEMISTRY METHOD 05/09/2025 4:04 PM [facility] LDL Calculated 83 0 - 100 mg/dL LAB CHEMISTRY METHOD 05/09/2025 4:04 PM [facility] Comment:Estimated LDL Calcul ated using equation: Total cholesterol - HDL cholesterol - (Triglycerides/5) VLDL Cholesterol Layo 15.6 mg/dL LAB CHEMISTRY METHOD 05/09/2025 4:04 PM EST [facility] Non HDL Chol. (LDL+VLDL) 99 <145 mg/dL LAB CHEMISTRY METHOD 05/09/2025 4:04 PM [facility] Chol/HDL Ratio 2.4 0.0 - 4.4 LAB CHEMISTRY METHOD 05/09/2025 4:04 PM EST [facility] Blood Venous blood specimen / Unknown Venipuncture / Unknown 05/09/2025 9:07 AM EST 05/09/2025 9:08 AM EST us Flora Avina INCLUSION TEACHER LAB BLOOD ORDERABLES Final R esult [facility] [address] [place] [address], * (ABNORMAL) MG Mammo Digital Screening w [...] Additional left breast imaging recommended. Mammo Location: [facility], [address] [place] [address], [id number], . -------- FINAL REPORT -------- Dictated By: Altagracia Moseley Dictated Date: 04/16/2025 09:33 ET Assigned Physician: Altagracia Moseley Reviewed and Electronically Signed By: Altagracia Moseley Signed Date: 04/16/2025 09:37 ET Workstation ID: [id number] Transcribed By: Self Edit Transcribed Date: 04/16/2025 [...] Additional left breast imaging recommended. Mammo Location: [facility], [address] [place] [address], [address], . -------- FINAL REPORT -------- Dictated By: Altagracia Moseley Dictated Date: 04/16/2025 09:33 ET Assigned Physician: Altagracia Moseley Reviewed and Electronically Signed By: Altagracia Moseley Signed Date: 04/16/2025 09:37 ET Workstation ID: [id number] Transcribed By: Self Edit Transcribed Date: 04/16/2025 09:33 ET Minnie Baker MD IMG BI PROCEDURES Final Result * EGD Anesthesia - MAC; [facility] ENDOSCOPY (04/02/2025 9:11 AM EDT) Anatomical [...] 10 days. Narrative 04/02/2025 9:14 AM EDT [facility] Patient Name: Hetal Luna Procedure [...] verified by the physician, the nurse, the roadway technician and the coffee machine technician in the pre-procedure area in the [...] entire esophagus. Procedure Code(s): --- Professional --- 69659, Esophagogastroduodenoscopy, flexible, transoral; with insertion of guide wire followed by passage of dilator(s) through esophagus over guide wire Diagnosis Code(s): --- Professional --- K22.9, Disease of esophagus, unspecified K22.2, Esophageal obstruction CPT copyright 2020 [employer]. All rights reserved. The codes documented in this report are preliminary and upon patient appointment coordinator review may be revised to meet current compliance requirements. Torsten Alvarado MD 04/02/2025 9:14:52 AM This report has been signed electronically.Torsten Alvarado MD Number of Addenda: 0 Note Initiated On: 04/02/2025 8:47 AM Scope In: Scope Out: Endoscopy Department at [facility] - [address] [place] [id number] Procedure Note Torsten Alvarado MD - 04/02/2025 [facility] Patient Name: Hetal Luna Procedure [...] the physician, the nurse, theanesthetist and the coffee machine technician in the pre-procedure area in the [...] entire esophagus. Procedure Code(s): --- Professional --- 76569, Esophagogastroduodenoscopy, flexible, transoral; with insertion of guide wire followed by passage of dilator(s) through esophagus over guidewire Diagnosis Code(s): --- Professional --- K22.9, Disease of esophagus, unspecified K22.2, Esophageal obstruction CPT copyright 2020 [employer]. All rights reserved. The codes documented in this report are preliminary and upon patient appointment coordinator reviewmay be revised to meet current compliance requirements. Torsten Alvarado MD 04/02/2025 9:14:52 AM This report has been signed electronically.Torsten Alvarado MD Number of Addenda: 0 Note Initiated On: 04/02/2025 8:47 AM Scope In: Scope Out: Endoscopy Department at [facility] - [address] [place] [phone] IMPRESSION: - Normal examined duodenum. - Normal [...] Signed Date: 03/26/2025 12:05 ET Workstation ID: [id number] Transcribed By: Self Edit Transcribed Date: 03/26/2025 11:58 ET Resident/PA/INCLUSION TEACHER: Marissa Rondon Narrative 03/26/2025 12:05 PM EDT FINDINGS: Double contrast UGI performed. COMPARISON: No prior upper GI imaging; barium swallow July 20, 2018. HISTORY: Patient is a 69-year-old female with history of GERD, hernia. EDGE MOLDER radiographs: Mold Machine Operator AP radiograph of the abdomen obtained. Bowel [...] 69-year-old female with history of GERD, hernia. EDGE MOLDER radiographs: Mold Machine Operator AP radiograph of the abdomen obtained. Bowel [...] Signed Date: 03/26/2025 12:05 ET Workstation ID: [id number] Transcribed By: Self Edit Transcribed Date: 03/26/2025 11:58 ET Resident/PA/INCLUSION TEACHER: Marissa Rondon Cindy MILLER IMG FLUOROSCOPY PROCEDURES Fi nal Result * (ABNORMAL) Comprehensive metabolic panel (02/28/2025 9:34 AM EDT) Sodium 140 133 - 145 mmol/L LAB CHEMISTRY METHOD 02/28/2025 12:24 PM [facility] Potassium 3.9 3.5 - 5.5 mmol/L LAB CHEMISTRY METHOD 02/28/2025 12:24 PM [facility] Chloride 111(H) 96 - 110 mmol/L LAB CHEMISTRY METHOD 02/28/2025 12:24 PM [facility] CO2 25 21 - 32 mmol/L LAB CHEMISTRY METHOD 02/28/2025 12:24 PM [facility] Anion Gap 4 3 - 11 LAB CHEMISTRY METHOD 02/28/2025 12:24 PM [facility] Glucose 96 70 - 100 mg/dL LAB CHEMISTRY METHOD 02/28/2025 12:24 PM [facility] BUN 14 5 - 25 mg/dL LAB CHEMISTRY METHOD 02/28/2025 12:24 PM [facility] Creatinine 0.81 0.50 - 1.10 mg/dL LAB CHEMISTRY METHOD 02/28/2025 12:24 PM [facility] eGFR 78 >=60 mL/min/1. 73m2 LAB CHEMISTRY METHOD 02/28/2025 12:24 PM [facility] Comment:Calculation based on the Chronic Kidney Disease Epidemiology Collaboration (CKD-EPI) equation refit without adjustment for race. BUN/Creatinine Ratio 17.3 LAB CHEMISTRY METHOD 02/28/2025 12:24 PM [facility] Calcium 9.0 8.5 - 10.5 mg/dL LAB CHEMISTRY METHOD 02/28/2025 12:24 PM [facility] AST (SGOT) 16 10 - 42 unit/L LAB CHEMISTRY METHOD 02/28/2025 12:24 PM EDT [facility] ALT (SGPT) 17 10 - 60 unit/L LAB CHEMISTRY METHOD 02/28/2025 12:24 PM EDT [facility] Alkaline Phosphatase 81 42 - 121 unit/L LAB CHEMISTRY METHOD 02/28/2025 12:24 PM EDT [facility] Total Protein 6.4 6.0 - 8.0 g/dL LAB CHEMISTRY METHOD 02/28/2025 12:24 PM EDT [facility] Albumin 3.9 3.2 - 5.0 g/dL LAB CHEMISTRY METHOD 02/28/2025 12:24 PM EDT [facility] Total Bilirubin 0.4 0.0 - 1.4 mg/dL LAB CHEMISTRY METHOD 02/28/2025 12:24 PM EDT [facility] Blood Venous blood specimen / Unknown Venipuncture / Unknown 02/28/2025 9:34 AM EDT 02/28/2025 10:35 AM EDT Cindy MILLER LAB BLOOD ORDERABLES Final Re sult [facility] [address] [place] [address], * BD Bone Density DXA Axial Skeleton (10/09/2024 9:38 AM EDT) Anatomical Region Laterality Modality Wrist, Hip, L-spine Bone Densito metry 10/09/2024 10:3 8 AM EDT Impressions 10/09/2024 10:40 AM EDT Impression: This patient's considered to have osteoporosis by WHO criteria. The [facility] Department of Internal Medicine recommends using National [...] screening schedule based on mark Miranda., [facility] July 15, 2011 for patients [...] Signed Date: 10/09/2024 10:40 ET Workstation ID: [id number] Transcribed By: Self Edit Transcribed Date: 10/09/2024 [...] to have osteoporosis by WHO criteria. The [facility] Department of Internal Medicine recommendsusing National Osteoporosis [...] alternative screening schedule based on mark Miranda., NEJMJanuary 2011 for patients with osteopenia (based on [...] Signed Date: 10/09/2024 10:40 ET Workstation ID: [id number] Transcribed By: Self Edit Transcribed Date: 10/09/2024 10:38 ET Minnie Baker MD IMG DXA PROCEDURES Final Result * Falls Risk Assessment (06/15/2023) [facility] Falls Risk Assessment abstracted Historical Provider HEALTH MAINTENANCE Final Result * Depression Screening (06/15/2023) [facility] Depression Screening abstracted Result [facility] Provider HEALTH MAINTENANCE Final Result * Colonoscopy (08/05/2022) [facility] Colonoscopy No interpreta tion,abstr acted Anatomical Region Laterality Modality Other Historical Provider HEALTH MAINTENANCE Final Result * Hepatitis C Screening (10/01/2015) [facility] Hepatitis C Screening abstracted Historical Provider HEALTH MAINTENANCE Final Result from Last 3 Months or Most Recently Relevant to Health Maintenance Additional Health Concerns Active Problems Noted Date Diagnosed Date Autogenerated Problem 04/01/2025 Insurance [place]ICARE [place]ICAID [place] Care Teams Rugby [employer] Footballer Relationship Specialty Start Date End Date Minnie Baker MD [address] [place] [address] PCP - General Internal Medicine 12/21/19
--- OUTSIDE RECORDS SUMMARY | 2025-06-24 10:29 | XMS_ITS ---
Author Name [facility] Organization Unknown Care Team Organization Name Specialty Phone Email Start Date End Da te [facility] ACO 02/13/2025 [facility] Minnie Baker Primary Care 12/03/2022 [facility] Dariana Cramer Primary Care 09/01/2022 02/13/2024 [facility] Tamara Awad Primary Care 05/04/202201/25
--- OUTSIDE RECORDS SUMMARY | 2025-06-24 10:29 | XMS_ITS | Encounter Summary ---
Author Organization [facility] [place] [address] Care Team Providers Care Lens Molding Equipment Operator Name Role Phone Minnie Baker MD Primary Care Provider [phone] Encounter Details Date Type Department Care Team (Late st Contact Info) Description 06/09/2025 Results Follow-Up Gastroenterology - [address] [place] [phone] Cinyd Cabezas PA [address] [place] [address] Social History Tobacco Use Types Packs/Day Years [...] for your loved ones. For example, child support investigator or elderly care for an older adult? [...] encounter Progress Notes * ANGELA Ferrer - 06/09/2025 4:28 PM EST I will send msg. documented in this encounter Plan of Treatment Upcoming Encounters Date Type Department Care Team (Late st Contact Info) Description 10/09/2025 9:45 AM EDT Office Visit Adult Medicine [facility] [address] [place], [place] [phone] Minnie Baker MD [address] [place] [address] 10/16/2025 11:25 AM EDT Office Visit Pulmonology [facility] [address] [place] [phone] Dariana Cramer, CHRIS [address] [place] [phone] documented as of this encounter Goals Goal [...] documented as of this encounter Care Teams Lens Molding Equipment Operator Relationship Specialty Start Date End Date Minnie Baker MD [address] [place] [address] PCP - General Internal Medicine 12/21/19 documented as of this encounter
== END 2025-06-24 10:05 | disposition home or self-care (01) ==
LOC: HO.HPHYS 09:47
PROVIDERS: PCP Internal Medicine; Visit Provider Physician Assistant
DX: M54.14 Radiculopathy, thoracic region (principal); M54.2 Cervicalgia; M54.16 Radiculopathy, lumbar region
CPT/HCPCS: 99213

== ENCOUNTER → 2025-06-24 09:47 | Outpatient (BNVA) | payer MEDICARE, MEDICAID, SELFPAY | PROVIDERS: PCP Internal Medicine; Visit Provider Physician Assistant | DX: M54.2 Cervicalgia (principal); M54.16 Radiculopathy, lumbar region | CPT/HCPCS: 99212 ==